=== PATIENT | female | born 1935 | race Caucasian/White ===

== ENCOUNTER 2022-12-31 10:17 | Emergency (ER) | payer MEDICARE, BC, SELFPAY ==
[2022-12-31] VITALS (29 sets, daily range): BP systolic 137–186; BP diastolic 76–98; PULSE 66–92; RESP 12; TEMP 36.6; O2SAT 96–99; BMI 22.5
--- NOTE | 2022-12-31 10:27 | CRLHL7_ITS ---
For Patients: As a result of the Century Cures Act, medical imaging exams and procedure reports are released immediately into your electronic medical record. You may view this report before your referring provider. If you have questions, please contact your health care provider. INDICATION: Acute stroke, left eye vision loss. TECHNIQUE: CTA head with contrast bolus tracking, 3D angiographic rendering using maximum intensity projection (MIP) and images permanently archived. FINDINGS: There is scattered intracranial atherosclerotic disease. There is normal opacification of the intracranial vasculature. There is no large vessel occlusion. No aneurysm is identified. IMPRESSION: No large vessel occlusion. Please note that all CT scans at this facility use dose modulation, iterative reconstruction, and/or weight-based dosing when appropriate to reduce radiation dose to as low as reasonably achievable. Dictated by Iam Song MD @ 12/31/2022 11:39:22 AM (Electronically Signed)
--- NOTE | 2022-12-31 10:27 | CRLHL7_ITS ---
For Patients: As a result of the Century Cures Act, medical imaging exams and procedure reports are released immediately into your electronic medical record. You may view this report before your referring provider. If you have questions, please contact your health care provider. INDICATION: Acute stroke, left eye vision loss. TECHNIQUE: CTA neck with contrast bolus tracking, 3D angiographic rendering using maximum intensity projection (MIP) and images permanently archived. FINDINGS: There is carotid atherosclerosis bilaterally. There is a moderate 60% stenosis of the proximal left ICA by NASCET criteria. There is a mild less than 50% stenosis of the proximal right ICA by NASCET criteria. There is no significant vertebral artery stenosis or dissection. The soft tissues of the neck are within normal limits. The cervical spine is in normal alignment. Degenerative changes are noted in the cervical spine. IMPRESSION: Carotid atherosclerosis bilaterally with moderate left and mild right stenosis by NASCET. Please note that all CT scans at this facility use dose modulation, iterative reconstruction, and/or weight-based dosing when appropriate to reduce radiation dose to as low as reasonably achievable. Dictated by Iam Song MD @ 12/31/2022 11:42:59 AM (Electronically Signed)
--- NOTE | 2022-12-31 10:27 | CRLHL7_ITS ---
For Patients: As a result of the Century Cures Act, medical imaging exams and procedure reports are released immediately into your electronic medical record. You may view this report before your referring provider. If you have questions, please contact your health care provider. Indication: Left eye vision loss Technique: Volumetric multidetector CT images of the head were obtained without the administration of low osmolar intravenous contrast. Comparison: None available Findings: There is no intra-axial or extra-axial fluid collection. There is no mass effect or midline shift. There is age-related cortical atrophy with mild sulcal widening and ex vacuo dilatation of the lateral ventricles. There are chronic small vessel disease changes in the subcortical and periventricular white matter without lost chisholm-white differentiation. The orbits and their contents are grossly within normal limits. The bony calvarium is grossly intact. The paranasal sinuses are clear. The mastoid air cells are well aerated. Impression: 1. Age-related changes of the brain without acute intracranial abnormality. A report was sent to Slim Valentino at 11:05 a.m. December 31, 20[address] all CT scans at this facility use dose modulation, iterative reconstruction, and/or weight-based dosing when appropriate to reduce radiation dose to as low as reasonably achievable. Dictated by Yg Washington MD @ 12/31/2022 11:09:51 AM (Electronically Signed)
--- NOTE | 2022-12-31 10:28 | CRLHL7_ITS ---
For Patients: As a result of the Cures Act, medical imaging exams and procedure reports are released immediately into your electronic medical record. You may view this report before your referring provider. If you have questions, please contact your health care provider. INDICATION: STOKE CODE AMS TECHNIQUE: Chest 1 view COMPARISON: 08/29/2014 FINDINGS: Mild scarring within the right upper lobe. Degenerative changes of both shoulders. Tortuosity of the aorta. Vascular calcifications. No CHF or pleural effusion. No pneumothorax. IMPRESSION: No acute findings. Dictated by Mihai Mccabe MD @ 12/31/2022 12:07:43 PM (Electronically Signed)
--- NOTE | 2022-12-31 10:29 | ED_ITS ---
HPI - General Adult General Time Seen by Provider: 10:22 Chief complaint: Dizziness/Vertigo Stated complaint: Loss of vision L eye Time Seen by Provider: 12/31/22 10:19 Source: patient, family, RN notes reviewed and old records reviewed Mode of arrival: ambulatory Limitations: other (Dementia) History of Present Illness HPI narrative: 87-year-old female who comes in today with vision loss in the left eye. Patient was up around 7:00 a.m. and seemed normal per family. Woke up from a nap about 9:30 a.m. (1 hour prior to coming the emergency department) and should she could not see out of her left eye. Patient has a history of dementia, here has no complaints but on questioning says she still has abnormal vision in the left eye. She can see light and dark but not much else. She denies headache, she does have some dizziness but this is chronic. No numbness or tingling the arms or legs. Daughter who is with her does not think she takes blood thinners. Related Data Home Medications Medication Instructions Recorded Confirmed cholecalciferol (vitamin D3) 1,250 PO 12/31/22 mcg (50,000 unit) capsule levothyroxine 50 mcg tablet 50 mcg PO QAM 12/31/22 12/31/22 lorazepam 0.5 mg tablet mg PO 12/31/22 memantine 10 mg tablet 10 mg PO BID 12/31/22 12/31/22 metoprolol tartrate 100 mg tablet 100 mg PO 12/31/22 nifedipine 60 mg tablet,extended 60 mg PO DAILY 12/31/22 12/31/22 release potassium chloride 10 mEq 10 meq PO BID 12/31/22 12/31/22 tablet,extended release(part/cryst) triamterene 37.5 1 tab PO DAILY 12/31/22 12/31/22 mg-hydrochlorothiazide 25 mg tablet Allergies Allergy/AdvReac Type Severity Reaction Status Date / Time No Known Drug Allergies Allergy Verified 12/31/22 10:55 [facility] Social History Smoking Status: Unknown if ever smoked Exam Narrative: Exam Narrative: General: Well-developed and well-nourished, no acute distress Head: Atraumatic and normocephalic Eyes: Conjunctiva are without injection. Left eye 5 mm and does not react to direct light ENT: External nose and ears are normal, posterior pharynx without erythema or exudate Neck: No midline cervical tenderness, full spontaneous range of motion the neck, trachea midline, no adenopathy Heart: Regular rate and rhythm no murmurs or thrills Lungs: Clear to auscultation bilaterally without wheezes or crackles Abdomen: Soft, nontender, nondistended with active bowel sounds Musculoskeletal: No tenderness, deformity, or edema Neurologic: Awake, alert, and oriented x3, no gross focal neurologic deficits, cranial nerves intact as tested Psych: Mood and affect are appropriate Skin: No rashes Const: Vital Signs, click to edit/add: Vital Signs - 24 hr 12/31/22 10:20 12/31/22 10:55 12/31/22 10:56 Temperature 97.9 F Pulse Rate 71 70 Pulse Rate [Pulse Oximeter] 92 Respiratory Rate Blood Pressure 160/77 H Blood Pressure [Ri ght Upper Arm] 184/98 H Pulse Oximetry 99 96 97 Oxygen Delivery Me thod Room Air 12/31/22 10:57 12/31/22 10:58 12/31/22 11:00 Temperature Pulse Rate 66 72 Pulse Rate [Pulse Oximeter] 81 Respiratory Rate 12 Blood Pressure Blood Pressure [Ri ght Upper Arm] 154/90 H Pulse Oximetry 97 98 97 Oxygen Delivery Me thod Room Air 12/31/22 11:02 12/31/22 11:03 12/31/22 11:15 Temperature Pulse Rate 72 67 68 Pulse Rate [Pulse Oximeter] Respiratory Rate Blood Pressure 149/82 H Blood Pressure [Ri ght Upper Arm] Pulse Oximetry 98 97 97 Oxygen Delivery Me thod 12/31/22 11:17 12/31/22 11:30 12/31/22 11:32 Temperature Pulse Rate 74 71 69 Pulse Rate [Pulse Oximeter] Respiratory Rate Blood Pressure 145/77 H 137/76 Blood Pressure [Ri ght Upper Arm] Pulse Oximetry 96 97 97 Oxygen Delivery Me thod 12/31/22 11:45 12/31/22 11:46 12/31/22 11:47 Temperature Pulse Rate 74 71 74 Pulse Rate [Pulse Oximeter] Respiratory Rate Blood Pressure 143/76 H Blood Pressure [Ri ght Upper Arm] Pulse Oximetry 96 98 98 Oxygen Delivery Me thod 12/31/22 11:51 12/31/22 11:52 12/31/22 12:01 Temperature Pulse Rate 70 71 Pulse Rate [Pulse Oximeter] Respiratory Rate Blood Pressure 158/79 H 176/92 H Blood Pressure [Ri ght Upper Arm] Pulse Oximetry 99 99 Oxygen Delivery Me thod 12/31/22 12:07 12/31/22 12:08 12/31/22 12:09 Temperature Pulse Rate 81 83 78 Pulse Rate [Pulse Oximeter] Respiratory Rate Blood Pressure 186/87 H Blood Pressure [Ri ght Upper Arm] Pulse Oximetry 97 99 99 Oxygen Delivery Me thod 12/31/22 12:12 12/31/22 12:13 12/31/22 12:15 Temperature Pulse Rate 84 82 79 Pulse Rate [Pulse Oximeter] Respiratory Rate Blood Pressure 156/79 H Blood Pressure [Ri ght Upper Arm] Pulse Oximetry 99 98 99 Oxygen Delivery Va thod 12/31/22 12:22 12/31/22 12:23 12/31/22 12:30 Temperature Pulse Rate 78 76 77 Pulse Rate [Pulse Oximeter] Respiratory Rate Blood Pressure 153/81 H Blood Pressure [Ri ght Upper Arm] Pulse Oximetry 98 98 98 Oxygen Delivery Va thod 12/31/22 12:31 Temperature Pulse Rate 79 Pulse Rate [Pulse Oximeter] Respiratory Rate Blood Pressure 161/86 H Blood Pressure [Ri ght Upper Arm] Pulse Oximetry 99 Oxygen Delivery Me thod Course Course Hospital Course: Patient seen and examined immediately on arrival. Prior records reviewed. On exam, patient does have a dilated left pupil with no leg response and says she can only see light and dark. This is consistent with central retinal artery occlusion and so will discuss with Neurology at [place] as a possible stroke equivalent. CTA is ordered. Given onset of symptoms, patient would be a c andidate for TNKase for this if family decides they would like to do so. Reevaluation(s) Time of Reevaluation #1: 10:32 Reevaluation #1: Care discussed with [facility] who agrees with assessment and will discuss TNK with family. Time of Reevaluation #2: 11:09 Reevaluation #2: CT/CTA negative per Radiology. Chest x-ray independently interpreted by me does not demonstrate any acute findings. Time of Reevaluation #3: 11:17 Reevaluation #3: Care discussed with Dr. Frias, family like to move forward with TNKase. Dr. Terrelll talk to grievance and appeals coordinator and plan for transfer to [place] Additional Reevaluation(s): 11:36 AM care discussed with grievance and appeals coordinator at [place]. 12:09 p.m. patient complaining headache and head feeling funny. Head CT is ordered, independently interpreted by me and appears negative for acute intracranial hemorrhage. Radiology interpretation is pending. Blood pressure i s starting to go up a little bit, labetalol is given to maintain blood pressure goal with systolic less than 1 a. Vital Signs Vital signs: Initial Vital Signs Temperature 97.9 F 12/31/22 10:20 Temperature Source Temporal Artery Scan 12/31/22 10:20 Pulse Rate 92 12/31/22 10:20 Blood Pressure 184/98 H 12/31/22 10:20 Blood Pressure Mean 126 H 12/31/22 10:20 Blood Pressure Position Supine 12/31/22 10:20 Pulse Oximetry 99 12/31/22 10:20 Oxygen Delivery Method Room Air 12/31/22 10:20 Vital Signs Temperature 97.9 F 12/31/22 10:20 Pulse Rate 92 12/31/22 10:20 Blood Pressure 184/98 H 12/31/22 10:20 Pulse Oximetry 99 12/31/22 10:20 Oxygen Delivery Method Room Air 12/31/22 10:20 Temperature 97.9 F 12/31/22 10:20 Pulse Rate 79 12/31/22 12:31 Respiratory Rate 12 12/31/22 10:58 Blood Pressure 161/86 H 12/31/22 12:31 Pulse Oximetry 99 12/31/22 12:31 Oxygen Delivery Method Room Air 12/31/22 10:58 Medical Decision Making Lab Data Labs: Lab Results 12/31/22 Range/Units 10:30 WBC 10.14 (4.50-11.00) K/uL RBC 5.53 H (4.00-5.20) m/uL Hgb 16.8 H (12.0-16.0) gm/dL Hct 50.8 (33.0-51.0) % MCV 92 (80-100) fL MCH 30 (26-34) pg MCHC 33 (32-36) gm/dL RDW Coeff of Efrain 13.1 (11.5-15.5) % Plt Count 314 (140-440) K/uL Neut % (Auto) 81.5 H (42.0-72.0) % Lymph % (Auto) 10.1 L (20-44) % Dickson % (Auto) 7.3 (0.0-11.0) % Eos % (Auto) 0.5 (0.0-7.0) % Baso % (Auto) 0.1 (0.0-3.0) % Neut # (Auto) 8.30 H (1.7-7.0) K/uL Lymph # (Auto) 1.00 (0.90-2.90) K/uL Dickson # (Auto) 0.70 (0.00-0.90) K/UL Eos # (Auto) 0.05 (0.00-0.50) K/uL Baso # (Auto) 0.01 (0.00-0.30) K/uL INR 0.98 (0.91-1.10) Sodium 139 (135-149) mmol/L Potassium 3.9 (3.6-5.1) mmol/L Chloride 101 (96-114) mmol/L Carbon Dioxide 29 (20-32) mmol/L BUN 18 (7-30) mg/dL Creatinine 1.2 (0.5-1.5) mg/dL Estimated Creat Clear 30.84 Estimated GFR 44 ml/min Glucose 124 H (60-115) mg/dL Calcium 9.5 (8.4-10.6) mg/dL Magnesium 1.7 (1.5-2.6) mg/dL ECG Data Attestation: I personally reviewed and interpreted this ECG as follows: Prior ECG tracings: not available for review Interpretation: Performed at 10:50 AM, sinus rhythm rate 69, normal intervals, normal axis, AL 156, QTc 445 Critical Care Time Critical Care Time Critical Care Time: Yes (Central retinal artery occlusion/stroke, lytics given) Attestation: The patient required my highest level preparedness to intervene emergently and I personally spent this critical care time directly and personally managing the patient. This critical care time included: Obtaining a history; Examining the patient; Pulse oximetry; Ordering and reviewing of studies; Arranging urgent treatment with development of a management plan; Evaluation of patients response to treatment; Frequent reassessment discussions with other providers. This critical care time was performed to assess and manage the high probability of imminent life-threatening deterioration that could result in multiorgan failure. It was exclusive of separate billable procedures and treating other patients and teaching time. Total Critical Care Time in Minutes: 80 Discharge Plan Discharge Clinical Impression: CRAO (central retinal artery occlusion), Hypertension Patient Disposition: [facility]na Garza Condition: Stable Prescriptions: No Action metoprolol tartrate 100 mg tablet 100 mg PO lorazepam 0.5 mg tablet PO levothyroxine 50 mcg tablet 50 mcg PO QAM triamterene-hydrochlorothiazid 37.5-25 mg tablet 1 tab PO DAILY nifedipine 60 mg tablet extended release 60 mg PO DAILY potassium chloride 10 mEq tablet,ER particles/crystals 10 meq PO BID memantine 10 mg tablet 10 mg PO BID cholecalciferol (vitamin D3) 1,250 mcg (50,000 unit) capsule PO Stand Alone Forms: [employer] Info Instructions
[2022-12-31 10:43] LABS: Basophils Absolute Auto 0.01 K/uL (0.00-0.30); Basophils Percent Auto 0.1 % (0.0-3.0); Eosinophils Absolute Auto 0.05 K/uL (0.00-0.50); Eosinophils Percent Auto 0.5 % (0.0-7.0); Hematocrit 50.8 % (33.0-51.0); Hemoglobin* 16.8 gm/dL (12.0-16.0); Immature Granulocytes Abs Auto 0.05 K/uL (0.00-0.30); Immature Granulocytes Pct Auto 0.5 %; Lymphocytes Percent Auto 10.1 % (20-44); Mean Corpuscular HGB Conc 33 gm/dL (32-36); Mean Corpuscular Hemoglobin 30 pg (26-34); Mean Corpuscular Volume 92 fL (80-100); Monocytes Percent Auto 7.3 % (0.0-11.0); Neutrophils Percent Auto 81.5 % (42.0-72.0); Platelet Count* 314 K/uL (140-440); RDW Coefficient of Variation % 13.1 % (11.5-15.5); Red Blood Count 5.53 m/uL (4.00-5.20); White Blood Count* 10.14 K/uL (4.50-11.00)
[2022-12-31 10:54] LABS: Slide Review Reflex No
[2022-12-31 11:02] LABS: INR 0.98 (0.91-1.10); Prothrombin Time 13.6 Seconds
[2022-12-31 11:07] LABS: Chloride* 101 mmol/L (96-114); Sodium* 139 mmol/L (135-149)
[2022-12-31 11:08] LABS: Potassium* 3.9 mmol/L (3.6-5.1)
[2022-12-31 11:10] LABS: Creatinine* 1.2 mg/dL (0.5-1.5); Est. Creatinine Clearance* 30.84; Estimated Glomerular Filt Rate 44 ml/min
[2022-12-31 11:11] LABS: Blood Urea Nitrogen* 18 mg/dL (7-30); Calcium* 9.5 mg/dL (8.4-10.6); Carbon Dioxide* 29 mmol/L (20-32); Glucose* 124 mg/dL (60-115); Magnesium* 1.7 mg/dL (1.5-2.6)
[2022-12-31] MEDS: TENECTEPLASE 5 MG/ML inj 15 MG IVP (11:41)
[2022-12-31] MEDS: SODIUM CHLORIDE 0.9 % (FLUSH) 10 ML SYRINGE IVF (11:42)
--- NOTE | 2022-12-31 11:56 | CRLHL7_ITS ---
For Patients: As a result of the Century Cures Act, medical imaging exams and procedure reports are released immediately into your electronic medical record. You may view this report before your referring provider. If you have questions, please contact your health care provider. INDICATION: Headache during tenecteplase COMPARISON: 12/31/2022 TECHNIQUE: A CT volumetric acquisition was performed of the brain without IV contrast. Please note that all CT scans at this facility use dose modulation, iterative reconstruction, and/or weight-based dosing when appropriate to reduce radiation dose to as low as reasonably achievable. FINDINGS: Residual contrast enhancement of the tentorium, vessels and falx noted. No hemorrhage. No hydrocephalus. No midline shift. Low attenuation changes within the subcortical white matter involving the left frontal parietal lobe again noted. Other areas of decreased attenuation present within the subcortical white matter and periventricular white matter bilaterally. IMPRESSION: Residual contrast present. No intracranial hemorrhage. Extensive chronic appearing white matter changes. No hydrocephalus. Please note that all CT scans at this facility use dose modulation, iterative reconstruction, and/or weight-based dosing when appropriate to reduce radiation dose to as low as reasonably achievable. Dictated by Mihai Mccabe MD @ 12/31/2022 12:57:19 PM (Electronically Signed)
--- NOTE | 2022-12-31 11:58 | ED.NURSE ---
Pt c/o not feeling right in her head and c/o new headache. Pt having trouble describing her symptoms specifically. updated, STAT head CT ordered.
--- NOTE | 2022-12-31 12:12 | ED.NURSE ---
Report called to Adina at [facility].
--- NOTE | 2022-12-31 12:16 | ED.NURSE ---
in room to examine pt. Pt states headache has resolved now. Pt is less hypertensive now as well.
== END 2022-12-31 12:49 | disposition short-term general hospital (02) ==
LOC: ED 11:32
PROVIDERS: Emergency Provider Family Medicine
DX: H34.12 Central retinal artery occlusion, left eye (principal); I10 Essential (primary) hypertension
CPT/HCPCS: 36415; 70450; 70496; 70498; 71045; 80048; 83735; 85025; 85610; 93005; 96374; 96375; 99285; 99291; 99292; J3101; Q9967

== ENCOUNTER 2022-12-31 12:40 | Outpatient (CLI) | payer MEDICARE, BC, SELFPAY | END 2022-12-31 12:41 | disposition home or self-care (01) | LOC: AMB 01-01 11:04 | PROVIDERS: Visit Provider Family Medicine | DX: I63.89 Other cerebral infarction (principal) | CPT/HCPCS: A0425; A0426; A0428 ==

== ENCOUNTER 2023-09-02 14:19 | Inpatient (IN) | payer MEDICARE, BC, SELFPAY ==
[2023-09-02] VITALS (39 sets, daily range): BP systolic 73–125; BP diastolic 48–67; PULSE 57–92; RESP 16–18; TEMP 36.4–36.9; O2SAT 91–99; BMI 26.6; BMI 24.6
--- NOTE | 2023-09-02 14:39 | ED_ITS ---
HPI - General Adult General Chief complaint: Weakness Stated complaint: Lethargy, weak Time Seen by Provider: 09/02/23 14:30 History of Present Illness HPI narrative: This 88-year-old female comes in reporting some lightheadedness symptoms for the past 4 5 days. She is a poor historian with dementia. She does not report any pain. She arrives here with blood pressure at 73/52. Her other vital signs are in normal range. Family member state that she had significant weakness today u johnnie awakening this morning. She has had bowel and bladder incontinence which is not normal for her. The patient has a interpersonal communications professor that comes daily for 6 hours. This person has not been able to come the last couple days. The patient is alone at home overnight. Related Data Home Medications Medication Instructions Recorded Confirmed cholecalciferol (vitamin D3) 1,250 50,000 unit PO Q14D 12/31/22 09/02/23 mcg (50,000 unit) capsule levothyroxine 50 mcg tablet 50 mcg PO QAM 12/31/22 09/02/23 memantine 10 mg tablet 10 mg PO BID 12/31/22 09/02/23 aspirin 81 mg chewable tablet 81 mg PO DAILY 09/02/23 09/02/23 (Vilma Chewable Low Dose Aspirin) atorvastatin 20 mg tablet 20 mg PO HS 09/02/23 09/02/23 cyanocobalamin (vitamin B-12) 1,000 mcg PO Q48H 09/02/23 09/02/23 1,000 mcg tablet furosemide 20 mg tablet 20 mg PO QAM 09/02/23 09/02/23 metoprolol tartrate 25 mg tablet 12.5 mg PO BID 09/02/23 09/02/23 pantoprazole 40 mg tablet,delayed 40 mg PO DAILY 09/02/23 09/02/23 release valsartan 80 mg tablet 80 mg PO DAILY 09/02/23 09/02/23 Allergies Allergy/AdvReac Type Severity Reaction Status Date / Time lisinopril Allergy Unknown Verified 09/02/23 14:30 Review of Systems Status of ROS: Reports: unobtainable due to mental status [facility] Medical History (Updated 09/02/23 @ 19:22 by Jaren Mcclain MD) Hyperlipidemia ?E78.5 - Hyperlipidemia, unspecified (ICD-10) GERD (gastroesophageal reflux disease) ?K21.9 - Gastro-esophageal reflux disease without esophagitis (ICD-10) Anxiety ?F41.9 - Anxiety disorder, unspecified (ICD-10) Alzheimer's dementia with behavioral disturbance ?G30.9 - Alzheimer's disease, unspecified (ICD-10) ?F02.818 - Dementia in other diseases classified elsewhere, unspecified severity, with other behavioral disturbance (ICD-10) Surgical History (Updated 02/18/23 @ 08:37 by Anna Rodriguez RN) Hx of left inguinal hernia repair ?Z98.890 - Other specified postprocedural states (ICD-10) ?Z87.19 - Personal history of other diseases of the digestive system (ICD-10) Hx of vaginal hysterectomy ?Z90.710 - Acquired absence of both cervix and uterus (ICD-10) Social History Smoking Status: Unknown if ever smoked Exam Narrative: Exam Narrative: HEENT: Normocephalic, atraumatic. Neck: Normal range of motion. Nontender. Supple. Heart: Regular. No murmurs. Normal rate. Intact distal pulses. Lungs: Clear to auscultation. No chest discomfort. No wheezes, rhonchi, or rales. Abdomen: Normal bowel sounds. Nontender. No rebound tenderness. Genitalia: Deferred. Back: No midline tenderness. Normal range of motion. Extremities: Normal range of motion. No injury. Skin: Intact. No rash. Warm. No erythema or pallor. Neurologic: No altered sensation. Nursing notes and vitals signs are reviewed. Const: Vital Signs, click to edit/add: Vital Signs - 24 hr 09/02/23 14:21 09/02/23 15:07 09/02/23 15:15 Temperature 98 F Pulse Rate 71 69 Pulse Rate [Pulse Oximeter] 92 Respiratory Rate 16 Blood Pressure Blood Pressure [Ri ght Upper Arm] 73/52 L Pulse Oximetry 96 93 95 Oxygen Delivery Me thod Room Air 09/02/23 15:17 09/02/23 15:18 09/02/23 15:30 Temperature Pulse Rate 69 68 66 Pulse Rate [Pulse Oximeter] Respiratory Rate Blood Pressure 99/50 L Blood Pressure [Ri ght Upper Arm] Pulse Oximetry 94 94 94 Oxygen Delivery Me thod 09/02/23 15:32 09/02/23 15:32 09/02/23 15:45 Temperature Pulse Rate 67 67 79 Pulse Rate [Pulse Oximeter] Respiratory Rate Blood Pressure 102/48 L 102/48 L Blood Pressure [Ri ght Upper Arm] Pulse Oximetry 96 96 99 Oxygen Delivery Me thod 09/02/23 15:47 09/02/23 15:48 09/02/23 16:00 Temperature Pulse Rate 69 69 69 Pulse Rate [Pulse Oximeter] Respiratory Rate Blood Pressure 104/51 L Blood Pressure [Ri ght Upper Arm] Pulse Oximetry 95 98 96 Oxygen Delivery Me thod 09/02/23 16:02 09/02/23 16:15 09/02/23 16:17 Temperature Pulse Rate 71 71 70 Pulse Rate [Pulse Oximeter] Respiratory Rate Blood Pressure 107/56 L 110/52 L Blood Pressure [Ri ght Upper Arm] Pulse Oximetry 94 93 95 Oxygen Delivery Me thod 09/02/23 16:18 09/02/23 16:30 09/02/23 16:32 Temperature Pulse Rate 69 69 Pulse Rate [Pulse Oximeter] Respiratory Rate Blood Pressure 121/54 L Blood Pressure [Ri ght Upper Arm] Pulse Oximetry 94 96 Oxygen Delivery Me thod 09/02/23 16:45 09/02/23 16:47 09/02/23 17:00 Temperature Pulse Rate 69 68 74 Pulse Rate [Pulse Oximeter] Respiratory Rate Blood Pressure 115/55 L Blood Pressure [Ri ght Upper Arm] Pulse Oximetry 94 95 95 Oxygen Delivery Me thod 09/02/23 17:02 09/02/23 17:32 09/02/23 17:33 Temperature Pulse Rate 75 67 66 Pulse Rate [Pulse Oximeter] Respiratory Rate Blood Pressure 125/57 L 111/61 Blood Pressure [Ri ght Upper Arm] Pulse Oximetry 98 95 94 Oxygen Delivery Me thod 09/02/23 17:45 09/02/23 18:00 09/02/23 18:02 Temperature Pulse Rate 64 65 66 Pulse Rate [Pulse Oximeter] Respiratory Rate Blood Pressure 112/60 Blood Pressure [Ri ght Upper Arm] Pulse Oximetry 94 96 97 Oxygen Delivery Me thod 09/02/23 18:15 09/02/23 18:30 09/02/23 18:33 Temperature Pulse Rate 68 69 Pulse Rate [Pulse Oximeter] Respiratory Rate Blood Pressure 101/63 Blood Pressure [Ri ght Upper Arm] Pulse Oximetry 96 95 Oxygen Delivery Me thod 09/02/23 18:45 Temperature Pulse Rate 72 Pulse Rate [Pulse Oximeter] Respiratory Rate Blood Pressure Blood Pressure [Ri ght Upper Arm] Pulse Oximetry 95 Oxygen Delivery Me thod Course Vital Signs Vital signs: Initial Vital Signs Temperature 98 F 09/02/23 14:21 Temperature Source Temporal Artery Scan 09/02/23 14:21 Pulse Rate 92 09/02/23 14:21 Pulse Rhythm Regular 09/02/23 14:21 Pulse Strength 3+ Normal 09/02/23 14:21 Respiratory Rate 16 09/02/23 14:21 Blood Pressure 73/52 L 09/02/23 14:21 Blood Pressure Mean 59 L 09/02/23 14:21 Blood Pressure Position Sitting 09/02/23 14:21 Pulse Oximetry 96 09/02/23 14:21 Oxygen Delivery Method Room Air 09/02/23 14:21 Vital Signs Temperature 98 F 09/02/23 14:21 Pulse Rate 92 09/02/23 14:21 Respiratory Rate 16 09/02/23 14:21 Blood Pressure 73/52 L 09/02/23 14:21 Pulse Oximetry 96 09/02/23 14:21 Oxygen Delivery Method Room Air 09/02/23 14:21 Temperature 98 F 09/02/23 14:21 Pulse Rate 72 09/02/23 18:45 Respiratory Rate 16 09/02/23 14:21 Blood Pressure 101/63 09/02/23 18:33 Pulse Oximetry 95 09/02/23 18:45 Oxygen Delivery Method Room Air 09/02/23 14:21 Medications Administered Medications: Generic Name Dose Route Start Last Admin Trade Name Freq PRN Reason Stop Dose Admin Piperacillin Sod/Tazobactam 100 mls @ 200 mls/hr 09/02/23 18:21 09/02/23 18:40 Sod 3.375 gm/ Sodium Chloride IVPB 09/02/23 18:22 200 mls/hr ONCE ONE Administration Discontinued Medications Generic Name Dose Route Start Last Admin Trade Name Freq PRN Reason Stop Dose Admin Sodium Chloride 1,000 mls @ 1,000 mls/hr 09/02/23 14:45 09/02/23 16:01 0.9 % Sodium Chloride 1000 Ml IV 09/02/23 15:44 Infused .Q1H [facility] Infusion Sodium Chloride 500 mls @ 500 mls/hr 09/02/23 16:33 09/02/23 17:47 0.9 % Sodium Chloride 500 Ml IV 09/02/23 17:32 Infused .Q1H ONE Infusion Medical Decision Making MDM Narrative Medical decision making narrative: This patient arrives with decreased function and has low blood pressure at 73/52. An IV was established and she received a L of normal saline which brought her blood pressure up to a sufficient level. Later she did receive an additional 500 mL of normal saline. Labs are acquired and her initial lactate level returns at 2.9. A repeat check of her lactate normalizes at 1.5. Her white count returns significant elevated near 18,000. She does not have any fever. She has not had any cough. She was incontinent of stool and possibly urine. A catheterized urine samples obtained and this returns negative for infection. Her initial troponin returned elevated at 0.42 and a repeat troponin returns at 0.38. I did speak with the patient's family members regarding these findings. I offered referral to apprentice cook which would include a transfer. They declined such intervention. It could be that this was some demand ischemia. The patient has not talked much but states that she has not had any pain. She clearly has a decreased in function compared to her normal [place] and has 6 hours of daily care from a home nurse visit. A chest x-ray is obtained also in by my review does not show any sign of obvious infiltrate. Blood cultures are obtained and the patient did receive an IV dose of Zosyn. Her repeat lactate is reassuring and she is not showing triggers to do a workup for sepsis in the 1st place but nevertheless a lactate level repeated is reassuring. I did speak with the hospitalist conveyor mechanic, Khloe Hall, who will arrange for her admission. Lab Data Labs: Lab Results 09/02/23 09/02/23 09/02/23 Range/Units 14:37 14:38 14:55 WBC 17.94 H (4.50-11.00) K/uL RBC 4.51 (4.00-5.20) m/uL Hgb 13.1 (12.0-16.0) gm/dL Hct 40.6 (33.0-51.0) % MCV 90 (80-100) fL MCH 29 (26-34) pg MCHC 32 (32-36) gm/dL RDW Coeff of [place] 14.9 (11.5-15.5) % Plt Count 210 (140-440) K/uL Neut % (Auto) 94.7 H (42.0-72.0) % Lymph % (Auto) 1.7 L (20-44) % [place] % (Auto) 3.1 (0.0-11.0) % Eos % (Auto) 0.0 (0.0-7.0) % Baso % (Auto) 0.1 (0.0-3.0) % Neut # (Auto) 17.00 H (1.7-7.0) K/uL Lymph # (Auto) 0.30 L (0.90-2.90) K/uL [place] # (Auto) 0.60 (0.00-0.90) K/UL Eos # (Auto) 0.00 (0.00-0.50) K/uL Baso # (Auto) 0.00 (0.00-0.30) K/uL Abs Immat Gran (auto) 0.10 (0.00-0.30) K/uL Imm/Tot Granulo (auto) 0.4 % Sodium 138 (135-149) mmol/L Potassium 3.1 L (3.6-5.1) mmol/L Chloride 103 (96-114) mmol/L Carbon Dioxide 25 (20-32) mmol/L Anion Gap 10 (7-15) mEq/L BUN 23 (7-30) mg/dL Creatinine 1.5 (0.5-1.5) mg/dL Estimated Creat Clear 24.23 Estimated GFR 34 ml/min Glucose 108 (60-115) mg/dL Lactate 2.9 H (0.5-1.9) mmol/L Calcium 9.2 (8.4-10.6) mg/dL Urine Color (Yellow) Urine Appearance (Clear) Urine pH (5.0-8.5) Ur Specific [place] (1.000-1.030) Urine Protein (Negative) Urine Glucose (UA) (Negative) Urine Ketones (Negative) Urine Blood (Negative) Urine Nitrite (Negative) Urine Bilirubin (Negative) Urine Urobilinogen (0.2-1.0) Ur Leukocyte Esterase (Negative) Urine RBC (0-2) Urine WBC (0-5) Ur Squamous Epith Cells (None-Few) Urine Bacteria (None) SARS-CoV-2 (PCR) Negative SARS-CoV-2 (Negative) Influenza Type A (PCR) Negative PCR FLU A (Negative) Influenza Type B (PCR) Negative PCR FLU B (Negative) RSV (PCR) Negative PCR RSV (Negative) POC Troponin I 0.42 H (0.01-0.04) ng/ml 09/02/23 09/02/23 09/02/23 Range/Units 15:40 16:34 16:40 WBC (4.50-11.00) K/uL RBC (4.00-5.20) m/uL Hgb (12.0-16.0) gm/dL Hct (33.0-51.0) % MCV (80-100) fL MCH (26-34) pg MCHC (32-36) gm/dL RDW Coeff of Efrain (11.5-15.5) % Plt Count (140-440) K/uL Neut % (Auto) (42.0-72.0) % Lymph % (Auto) (20-44) % [place] % (Auto) (0.0-11.0) % Eos % (Auto) (0.0-7.0) % Baso % (Auto) (0.0-3.0) % Neut # (Auto) (1.7-7.0) K/uL Lymph # (Auto) (0.90-2.90) K/uL [place] # (Auto) (0.00-0.90) K/UL Eos # (Auto) (0.00-0.50) K/uL Baso # (Auto) (0.00-0.30) K/uL Abs Immat Gran (auto) (0.00-0.30) K/uL Imm/Tot Granulo (auto) % Sodium (135-149) mmol/L Potassium (3.6-5.1) mmol/L Chloride (96-114) mmol/L Carbon Dioxide (20-32) mmol/L Anion Gap (7-15) mEq/L BUN (7-30) mg/dL Creatinine (0.5-1.5) mg/dL Estimated Creat Clear Estimated GFR ml/min Glucose (60-115) mg/dL Lactate 1.5 (0.5-1.9) mmol/L Calcium (8.4-10.6) mg/dL Urine Color Yellow (Yellow) Urine Appearance Clear (Clear) Urine pH 6.0 (5.0-8.5) Ur Specific [place] 1.020 (1.000-1.030) Urine Protein Negative (Negative) Urine Glucose (UA) Negative (Negative) Urine Ketones Negative (Negative) Urine Blood Negative (Negative) Urine Nitrite Negative (Negative) Urine Bilirubin Negative (Negative) Urine Urobilinogen 0.2 (0.2-1.0) Ur Leukocyte Esterase Negative (Negative) Urine RBC 0-2 (0-2) Urine WBC 2-5 (0-5) Ur Squamous Epith Cells Few (None-Few) Urine Bacteria None (None) SARS-CoV-2 (PCR) (Negative) Influenza Type A (PCR) (Negative) Influenza Type B (PCR) (Negative) RSV (PCR) (Negative) POC Troponin I 0.38 H (0.01-0.04) ng/ml ECG Data Attestation: I personally reviewed and interpreted this ECG as follows: Interpretation: Normal sinus rhythm. Rate is 72 beats per minute. There are no ST or T-wave abnormalities. Repeat EKG shows normal sinus rhythm with a rate of 65 beats per minute. There are no specific ST or T-wave abnormalities. Discharge Plan Discharge Clinical Impression: Leukocytosis, Weakness Patient Disposition: Admitted As Inpatient Condition: Unchanged Prescriptions: No Action atorvastatin 20 mg tablet 20 mg PO HS metoprolol tartrate 25 mg tablet 12.5 mg PO BID valsartan 80 mg tablet 80 mg PO DAILY pantoprazole 40 mg tablet,delayed release (DR/EC) 40 mg PO DAILY cyanocobalamin (vitamin B-12) 1,000 mcg tablet 1,000 mcg PO Q48H Rx Instructions: EVERY OTHER DAY furosemide 20 mg tablet 20 mg PO QAM aspirin [Vilma Chewable Aspirin] 81 mg tablet,chewable 81 mg PO DAILY levothyroxine 50 mcg tablet 50 mcg PO QAM memantine 10 mg tablet 10 mg PO BID cholecalciferol (vitamin D3) 1,250 mcg (50,000 unit) capsule 50,000 unit PO Q14D Rx Instructions: EVERY OTHER WEEK Follow Up/Referrals: Provider,Not a Local [Primary Care Provider] -
[2023-09-02] MEDS: 0.9 % SODIUM CHLORIDE 1000 ml 1,000 ML IV (15:00)
[2023-09-02 15:06] LABS: Lactate* 2.9 mmol/L (0.5-1.9)
[2023-09-02 15:12] LABS: Basophils Percent Auto 0.1 % (0.0-3.0); Hematocrit 40.6 % (33.0-51.0); Hemoglobin* 13.1 gm/dL (12.0-16.0); Immature Granulocytes Pct Auto 0.4 %; Lymphocytes Percent Auto 1.7 % (20-44); Mean Corpuscular HGB Conc 32 gm/dL (32-36); Mean Corpuscular Hemoglobin 29 pg (26-34); Mean Corpuscular Volume 90 fL (80-100); Monocytes Percent Auto 3.1 % (0.0-11.0); Neutrophils Percent Auto 94.7 % (42.0-72.0); Platelet Count* 210 K/uL (140-440); RDW Coefficient of Variation % 14.9 % (11.5-15.5); Red Blood Count 4.51 m/uL (4.00-5.20); White Blood Count* 17.94 K/uL (4.50-11.00)
[2023-09-02 15:15] LABS: Troponin, Point-of-Care* 0.42 ng/ml (0.01-0.04)
[2023-09-02 15:16] LABS: Slide Review Reflex No
[2023-09-02 15:29] LABS: Chloride* 103 mmol/L (96-114); Potassium* 3.1 mmol/L (3.6-5.1); Sodium* 138 mmol/L (135-149)
[2023-09-02 15:32] LABS: Anion Gap 10 mEq/L (7-15); Blood Urea Nitrogen* 23 mg/dL (7-30); Carbon Dioxide* 25 mmol/L (20-32); Creatinine* 1.5 mg/dL (0.5-1.5); Est. Creatinine Clearance* 24.23; Estimated Glomerular Filt Rate 34 ml/min; Glucose* 108 mg/dL (60-115)
[2023-09-02 15:33] LABS: Calcium* 9.2 mg/dL (8.4-10.6)
[2023-09-02 15:35] LABS: PCR FLU A Negative PCR FLU A (Negative); PCR FLU B Negative PCR FLU B (Negative); PCR RSV Negative PCR RSV (Negative); SARS PCR* Negative SARS-CoV-2 (Negative)
--- NOTE | 2023-09-02 15:48 | ED.NURSE ---
16Fr Wiggins placed under sterile fashion. 10cc sterile water in balloon. Pt tolerated procedure well. Successful placement on first attempt. Catheter draining clear, light nayla urine.
[2023-09-02 15:56] LABS: Appearance Urine Clear (Clear); Bilirubin Urine Negative (Negative); Blood Urine Negative (Negative); Color Urine Yellow (Yellow); Glucose Urine Negative (Negative); Ketones Urine Negative (Negative); Leukocyte Esterase Urine Negative (Negative); Nitrite Urine Negative (Negative); Protein Urine Negative (Negative); Urobilinogen Urine 0.2 (0.2-1.0)
[2023-09-02 16:30] LABS: RBC Urine 0-2 (0-2); Squamous Epithelial Cell Urine Few (None-Few)
[2023-09-02] MEDS: 0.9 % SODIUM CHLORIDE 500 ML 500 ML IV (16:48)
[2023-09-02 16:49] LABS: Lactate* 1.5 mmol/L (0.5-1.9)
[2023-09-02 16:56] LABS: Troponin, Point-of-Care* 0.38 ng/ml (0.01-0.04)
--- NOTE | 2023-09-02 18:10 | XR_ITS ---
Final Report Patient: KIRT HUFFMAN Facility:?[facility] Patient ID:?[id number] Site Patient ID:?[id number]. Site :?[id number] Study:?XRay Chest PORTABLE-09/02/2023 6:26:16 PM Ordering Physician:GILBERT Final Report: INDICATION: ELEVATED WBC COUNT TECHNIQUE: Chest 1 view COMPARISON: 12/31/2022 FINDINGS: Similar appearance of the perihilar vascularity. Aortic tortuosity. Increased retrocardiac density. No pneumothorax. IMPRESSION: Suspicion of a left lower lobe infiltrate behind the heart. Dictated by Mihai Mccabe MD @ 09/03/2023 1:17:59 PM (Electronic Signature)
[2023-09-02] MEDS: PIPERACILLIN/TAZOBACTAM 3.375 GM in 0.9 % SODIUM CHLORIDE Mini-bag 100 ML IVPB (18:40)
--- NOTE | 2023-09-02 20:06 | P.IMHP_ITS ---
Hospitalist- H&P: HPI History of Present Illness Date Seen: 09/02/23 Chief complaint: Lethargy, weak Narrative: Chloé Wellington is a 88 year old female past medical history significant for hypertension, CRAO, hypercholesterolemia, hypothyroidism, GERD, uterine cancer, Alzheimer's disease is admitted to the medical floor from the ED for further management hypotension and leukocytosis, suspected community-acquired pneumonia. As patient is a poor historian and family is no longer present, majority of history is obtained by ED provider. In the ED, patient complained of lightheadedness for the past 4-5 days. She is able to tell me that she is not in any pain. She denies headache. Denies chest pain. No reported fevers. Family had told ED provider that patient was significantly weak this morning. She has also had bowel and bladder incontinence with loose stools at home which is not her normal. Patient lives alone and has a certified personal chef that is with her for 6 hours a day but has not been able to be there for the last couple of days. She is otherwise alone at night. Review of Systems Narrative: REVIEW OF SYSTEMS: Complete review of systems performed and negative unless otherwise stated in HPI or below. [facility] Medical History (Updated 09/02/23 @ 20:29 by Khloe Perkins PA-C) Hypothyroidism ?E03.9 - Hypothyroidism, unspecified (ICD-10) Hypertension ?I10 - Essential (primary) hypertension (ICD-10) CRAO (central retinal artery occlusion) ?H34.10 - Central retinal artery occlusion, unspecified eye (ICD-10) Hyperlipidemia ?E78.5 - Hyperlipidemia, unspecified (ICD-10) GERD (gastroesophageal reflux disease) ?K21.9 - Gastro-esophageal reflux disease without esophagitis (ICD-10) Anxiety ?F41.9 - Anxiety disorder, unspecified (ICD-10) Alzheimer's dementia with behavioral disturbance ?G30.9 - Alzheimer's disease, unspecified (ICD-10) ?F02.818 - Dementia in other diseases classified elsewhere, unspecified severity, with other behavioral disturbance (ICD-10) Surgical History Hx of left inguinal hernia repair ?Z98.890 - Other specified postprocedural states (ICD-10) ?Z87.19 - Personal history of other diseases of the digestive system (ICD-10) Hx of vaginal hysterectomy ?Z90.710 - Acquired absence of both cervix and uterus (ICD-10) Social History Smoking Status: Unknown if ever smoked Meds Home Medications and Allergies Home Medications Medication Instructions Recorded Confirmed Type cholecalciferol (vitamin D3) 1,250 50,000 unit PO Q14D 12/31/22 09/02/23 History mcg (50,000 unit) capsule levothyroxine 50 mcg tablet 50 mcg PO QAM 12/31/22 09/02/23 History memantine 10 mg tablet 10 mg PO BID 12/31/22 09/02/23 History aspirin 81 mg chewable tablet 81 mg PO DAILY 09/02/23 09/02/23 History (Vilma Chewable Low Dose Aspirin) atorvastatin 20 mg tablet 20 mg PO HS 09/02/23 09/02/23 History cyanocobalamin (vitamin B-12) 1,000 mcg PO Q48H 09/02/23 09/02/23 History 1,000 mcg tablet furosemide 20 mg tablet 20 mg PO QAM 09/02/23 09/02/23 History metoprolol tartrate 25 mg tablet 12.5 mg PO BID 09/02/23 09/02/23 History pantoprazole 40 mg tablet,delayed 40 mg PO DAILY 09/02/23 09/02/23 History release valsartan 80 mg tablet 80 mg PO DAILY 09/02/23 09/02/23 History Allergies Allergy/AdvReac Type Severity Reaction Status Date / Time lisinopril Allergy Unknown Verified 09/02/23 14:30 Exam Narrative: Exam Narrative: PHYSICAL EXAM General: Pleasant, appears in NAD HEENT: Normocephalic, atraumatic, sclera white, EOMI, oral mucosa dry Cardiovascular: RRR. No pitting edema Pulmonary: CTA bilaterally without rhonchi, rales, expiratory wheezes. No dyspnea on room air Abdominal: Soft, nondistended, NTTP, no guarding Neurological: Alert, poor historian, no focal findings Extremities: No gross joint deformity or swelling. AROMI. Neurovascularly intact Skin: Warm, dry. Const: Vital Signs, click to edit/add: Vital Signs - 24 hr 09/02/23 14:21 09/02/23 15:07 09/02/23 15:15 Temperature 98 F Pulse Rate 71 69 Pulse Rate [Pulse Oximeter] 92 Respiratory Rate 16 Blood Pressure Blood Pressure [Ri ght Upper Arm] 73/52 L Pulse Oximetry 96 93 95 Oxygen Delivery Me thod Room Air 09/02/23 15:17 09/02/23 15:18 09/02/23 15:30 Temperature Pulse Rate 69 68 66 Pulse Rate [Pulse Oximeter] Respiratory Rate Blood Pressure 99/50 L Blood Pressure [Ri ght Upper Arm] Pulse Oximetry 94 94 94 Oxygen Delivery Me thod 09/02/23 15:32 09/02/23 15:32 09/02/23 15:45 Temperature Pulse Rate 67 67 79 Pulse Rate [Pulse Oximeter] Respiratory Rate Blood Pressure 102/48 L 102/48 L Blood Pressure [Ri ght Upper Arm] Pulse Oximetry 96 96 99 Oxygen Delivery Me thod 09/02/23 15:47 09/02/23 15:48 09/02/23 16:00 Temperature Pulse Rate 69 69 69 Pulse Rate [Pulse Oximeter] Respiratory Rate Blood Pressure 104/51 L Blood Pressure [Ri ght Upper Arm] Pulse Oximetry 95 98 96 Oxygen Delivery Me thod 09/02/23 16:02 09/02/23 16:15 09/02/23 16:17 Temperature Pulse Rate 71 71 70 Pulse Rate [Pulse Oximeter] Respiratory Rate Blood Pressure 107/56 L 110/52 L Blood Pressure [Ri ght Upper Arm] Pulse Oximetry 94 93 95 Oxygen Delivery Me thod 09/02/23 16:18 09/02/23 16:30 09/02/23 16:32 Temperature Pulse Rate 69 69 Pulse Rate [Pulse Oximeter] Respiratory Rate Blood Pressure 121/54 L Blood Pressure [Ri ght Upper Arm] Pulse Oximetry 94 96 Oxygen Delivery Me thod 09/02/23 16:45 09/02/23 16:47 09/02/23 17:00 Temperature Pulse Rate 69 68 74 Pulse Rate [Pulse Oximeter] Respiratory Rate Blood Pressure 115/55 L Blood Pressure [Ri ght Upper Arm] Pulse Oximetry 94 95 95 Oxygen Delivery Me thod 09/02/23 17:02 09/02/23 17:32 09/02/23 17:33 Temperature Pulse Rate 75 67 66 Pulse Rate [Pulse Oximeter] Respiratory Rate Blood Pressure 125/57 L 111/61 Blood Pressure [Ri ght Upper Arm] Pulse Oximetry 98 95 94 Oxygen Delivery Nc thod 09/02/23 17:45 09/02/23 18:00 09/02/23 18:02 Temperature Pulse Rate 64 65 66 Pulse Rate [Pulse Oximeter] Respiratory Rate Blood Pressure 112/60 Blood Pressure [Ri ght Upper Arm] Pulse Oximetry 94 96 97 Oxygen Delivery Nc thod 09/02/23 18:15 09/02/23 18:30 09/02/23 18:33 Temperature Pulse Rate 68 69 Pulse Rate [Pulse Oximeter] Respiratory Rate Blood Pressure 101/63 Blood Pressure [Ri ght Upper Arm] Pulse Oximetry 96 95 Oxygen Delivery Nc thod 09/02/23 18:45 09/02/23 19:09 09/02/23 19:11 Temperature Pulse Rate 72 68 69 Pulse Rate [Pulse Oximeter] Respiratory Rate Blood Pressure 115/61 Blood Pressure [Ri ght Upper Arm] Pulse Oximetry 95 96 92 Oxygen Delivery Nc thod 09/02/23 19:15 09/02/23 19:30 09/02/23 19:32 Temperature Pulse Rate 64 62 60 Pulse Rate [Pulse Oximeter] Respiratory Rate Blood Pressure 110/52 L Blood Pressure [Ri ght Upper Arm] Pulse Oximetry 92 91 93 [facility]: Result Labs Labs: Short CBC 09/02/23 Range/Units 14:55 WBC 17.94 H (4.50-11.00) K/uL Hgb 13.1 (12.0-16.0) gm/dL Hct 40.6 (33.0-51.0) % Plt Count 210 (140-440) K/uL BMP 09/02/23 14:55 Sodium 138 Potassium 3.1 L Chloride 103 Carbon Dioxide 25 BUN 23 Creatinine 1.5 Glucose 108 Calcium 9.2 Urine 09/02/23 Range/Units 15:40 Urine Color Yellow (Yellow) Urine Appearance Clear (Clear) Urine pH 6.0 (5.0-8.5) Ur Specific [place] 1.020 (1.000-1.030) Urine Protein Negative (Negative) Urine Glucose (UA) Negative (Negative) ECG Attestation: I personally reviewed and interpreted this ECG as follows: ECG interpretation date: 09/02/23 Interpretation: NSR, ventricular rate 65, QTC 472 Imaging Chest x-ray: Attestation: I have reviewed the pertinent imaging results. Radiologist's impression: No formal read by Radiology. Mild, haziness upper lobes Assessment and Plan Assessment and plan (1) Leukocytosis: Problem comment: -leukocytosis with left shift WBC 17.94, lactate 2.9 improved to 1.5 following IVF, afebrile, no tachycardia/tachypnea, hypotensive improved with IVF -UA unremarkable, BC x2 pending -empiric treatment for possible community acquired pneumonia, query bacteremia -continue IV Zosyn as initiated in ED -continue gentle IV hydration, received 1.5 L in ED Status: Acute (2) Weakness: Problem comment: -generalized, afebrile, leukocytosis, electrolytes reasonable -orthostatics when able -PT/OT consults -Health Editor for discharge planning/placement needs. Currently lives home alone with CERTIFIED CREDIT COUNSELOR present 6 hours daily Status: Acute (3) Hypotension: Problem comment: -responsive to IVF -per ED provider, family does not want to use pressors. Okay for boluses IVF if necessary -hold home medications Status: Acute (4) Diarrhea: Problem comment: -incontinent of stools which is not normal for her -C diff, stool culture, GI pathogen ordered. Precautions -magnesium and phosphorus levels ordered Status: Acute (5) Hypokalemia: Problem comment: -potassium 3.1 -hold Lasix -supplement with oral replacement and follow Status: Acute (6) Hypothyroidism: Problem comment: -continue levothyroxine -TSH ordered Status: Chronic (7) Alzheimer's dementia with behavioral disturbance: Problem comment: -continue home medication, monitor for acute delirium Status: Chronic (8) Hypertension: Problem comment: -hold valsartan, metoprolol, furosemide in setting of hypotension Status: Chronic (9) Elevated troponin: Problem comment: -0.38, EKG shows NSR -per ED provider, as discussed with family, no further workup or management requested Status: Acute Plan Code: Full VTE PPX: Enoxaparin
[2023-09-02 20:32] LABS: C.Difficile Negative (Negative); CDIFFEPI 027 Presumptive Negative (Negative)
[2023-09-02 21:32] LABS: Thyroid Stimulating Hormone* 0.934 uIU/mL (0.270-4.20)
[2023-09-02] MEDS: ATORVASTATIN 10 MG TABLET 20 MG PO (21:50)
[2023-09-02] MEDS: MEMANTINE HCL 10 MG TABLET PO (21:51)
[2023-09-02] MEDS: ENOXAPARIN 30 MG/0.3ML INJ SUBCUT (21:53)
[2023-09-02] MEDS: SODIUM CHLORIDE 0.9 % (FLUSH) 10 ML SYRINGE 5 ML IVF (21:54)
[2023-09-02] MEDS: 0.9 % SODIUM CHLORIDE 1000 ml 1,000 ML 125 ML IV (21:54)
[2023-09-03] MEDS: PIPERACILLIN/TAZOBACTAM 2.25 GM in 0.9 % SODIUM CHLORIDE Mini-bag 100 ML IVPB ×4 (02:13→19:43)
[2023-09-03 03:00] VITALS: BP 108/70; RESP 18; TEMP 36.6; O2SAT 95
[2023-09-03] MEDS: 0.9 % SODIUM CHLORIDE 1000 ml 1,000 ML 125 ML IV ×3 (05:42→23:49)
[2023-09-03 06:27] LABS: Hematocrit 38.9 % (33.0-51.0); Hemoglobin* 12.3 gm/dL (12.0-16.0); Mean Corpuscular HGB Conc 32 gm/dL (32-36); Mean Corpuscular Hemoglobin 29 pg (26-34); Mean Corpuscular Volume 91 fL (80-100); Platelet Count* 170 K/uL (140-440); Red Blood Count 4.29 m/uL (4.00-5.20)
[2023-09-03] MEDS: LEVOTHYROXINE 50 MCG TABLET PO (06:34)
[2023-09-03 06:35] LABS: Slide Review Reflex No
[2023-09-03 06:51] LABS: Chloride* 110 mmol/L (96-114); Potassium* 3.2 mmol/L (3.6-5.1); Sodium* 140 mmol/L (135-149)
[2023-09-03 06:54] LABS: Anion Gap 5 mEq/L (7-15); Blood Urea Nitrogen* 23 mg/dL (7-30); Carbon Dioxide* 25 mmol/L (20-32); Creatinine* 1.2 mg/dL (0.5-1.5); Est. Creatinine Clearance* 30.28; Estimated Glomerular Filt Rate 44 ml/min
[2023-09-03 06:55] LABS: Calcium* 7.9 mg/dL (8.4-10.6); Glucose* 79 mg/dL (60-115); Magnesium* 1.5 mg/dL (1.5-2.6); Phosphorus* 3.5 mg/dL (2.5-4.5)
[2023-09-03 06:57] LABS: C Reactive Protein* 8.6 mg/dL (0.5-1.0)
[2023-09-03 07:00] VITALS: BP 117/70; PULSE 72; PULSE 73; RESP 20; TEMP 36.5; O2SAT 96
--- NOTE | 2023-09-03 08:20 | P.IMPN_ITS ---
Progress Note: A&P Assessment and plan (1) Bacteremia: Problem details: -BC x2 preliminary report growing Gram-negative rods -continue Zosyn, renally dosed. Creatinine 1.2 -pressures stable overnight, IVF boluses p.r.n., no pressors per family request Status: Acute (2) Pneumonia: Problem details: -CXR, radiology read concerning for left basilar infiltrate. Leukocytosis down trending. -continue Zosyn, renally dosed Status: Acute (3) Leukocytosis: Problem details: -leukocytosis with left shift WBC 17.94 - downtrending, lactate 2.9 improved to 1.5 following IVF, afebrile, no tachycardia/tachypnea, hypotensive improved with IVF -UA unremarkable, BC x2 preliminary gram-negative rods -empiric treatment for possible community acquired pneumonia, query bacteremia - confirmed -continue IV Zosyn as initiated in ED -continue gentle IV hydration, received 1.5 L in ED Status: Acute (4) Weakness: Problem details: -generalized, afebrile, leukocytosis, electrolytes reasonable -orthostatics when able -PT/OT consults -Record Clerk Salesperson for discharge planning/placement needs. Currently lives home alone with CYLINDER PRESS OPERATOR present 6 hours daily Status: Acute (5) Diarrhea: Problem details: -incontinent of stools which is not normal for her -C diff negative, stool culture, GI pathogen pending. Precautions -magnesium and phosphorus levels WNL Status: Acute (6) Hypokalemia: Problem details: -potassium 3.2 -hold Lasix -continue supplement with oral replacement and follow Status: Acute (7) Elevated troponin: Problem details: -0.38, EKG shows NSR -per ED provider, as discussed with family, no further workup or management requested Status: Acute (8) Hypertension: Problem details: -hold valsartan, metoprolol, furosemide in setting of hypotension. Resume when appropriate Status: Chronic (9) Alzheimer's dementia with behavioral disturbance: Problem details: -continue home medication, monitor for acute delirium -high school social studies teacher for discharge planning/placement needs. Not appropriate for living home alone, unsupervised 18 hours a day Status: Chronic (10) Hypothyroidism: Problem details: -continue levothyroxine -TSH 0.934 Status: Chronic (11) Hypotension: Problem details: -responsive to IVF -per ED provider, family does not want to use pressors. Okay for boluses IVF if necessary -hold home medications 09/03 - pressures stable overnight Status: Acute (12) Squamous cell carcinoma of scalp: Problem details: -noted. Multiple previous excisions. Per EMR, last treated by [facility] 05/2023 Status: Acute Plan Continue renally dosed IV antibiotics for bacteremia, acute cystitis, suspected pneumonia. OT/PT/high school social studies teacher for discharge planning, placement needs. Time Spent With Patient Total time spent: Total time spent caring for the patient today was 45 minutes. This includes time spent for the visit reviewing the chart, time spent during the visit, time spent after the visit and documentation and planning in coordination of care. Subjective Date Seen: 09/03/23 Interval history: Patient is seen at bedside, more alert, smiling, reports feeling better this morning. Oriented to self. Denies pain of any sort. Reports sleeping pretty well. Remains afebrile. Pressures stable overnight. Tolerating orals without nausea, vomiting. Exam Narrative: Exam Narrative: PHYSICAL EXAM General: Pleasant, conversant this morning, NAD HEENT: Scalp with squamous cell growths Cardiovascular: RRR. No pitting edema Pulmonary: CTA bilaterally without rhonchi, rales, expiratory wheezes. No dyspnea on room air Abdominal: Soft, nondistended, NTTP, no guarding Neurological: Alert, poor historian, no focal findings Extremities: No gross joint deformity or swelling. AROMI. Neurovascularly intact Skin: Warm, dry. Const: Vital Signs, click to edit/add: Vital Signs - 24 hr 09/02/23 14:21 09/02/23 15:07 09/02/23 15:15 Temperature 98 F Pulse Rate 71 69 Pulse Rate [Pulse Oximeter] 92 Respiratory Rate 16 Blood Pressure Blood Pressure [Le ft Arm] Blood Pressure [Ri ght Upper Arm] 73/52 L Pulse Oximetry 96 93 95 Oxygen Delivery Me thod Room Air 09/02/23 15:17 09/02/23 15:18 09/02/23 15:30 Temperature Pulse Rate 69 68 66 Pulse Rate [Pulse Oximeter] Respiratory Rate Blood Pressure 99/50 L Blood Pressure [Le ft Arm] Blood Pressure [Ri ght Upper Arm] Pulse Oximetry 94 94 94 Oxygen Delivery Me thod 09/02/23 15:32 09/02/23 15:32 09/02/23 15:45 Temperature Pulse Rate 67 67 79 Pulse Rate [Pulse Oximeter] Respiratory Rate Blood Pressure 102/48 L 102/48 L Blood Pressure [Le ft Arm] Blood Pressure [Ri ght Upper Arm] Pulse Oximetry 96 96 99 Oxygen Delivery Me thod 09/02/23 15:47 09/02/23 15:48 09/02/23 16:00 Temperature Pulse Rate 69 69 69 Pulse Rate [Pulse Oximeter] Respiratory Rate Blood Pressure 104/51 L Blood Pressure [Le ft Arm] Blood Pressure [Ri ght Upper Arm] Pulse Oximetry 95 98 96 Oxygen Delivery Me thod 09/02/23 16:02 09/02/23 16:15 09/02/23 16:17 Temperature Pulse Rate 71 71 70 Pulse Rate [Pulse Oximeter] Respiratory Rate Blood Pressure 107/56 L 110/52 L Blood Pressure [Le ft Arm] Blood Pressure [Ri ght Upper Arm] Pulse Oximetry 94 93 95 Oxygen Delivery Me thod 09/02/23 16:18 09/02/23 16:30 09/02/23 16:32 Temperature Pulse Rate 69 69 Pulse Rate [Pulse Oximeter] Respiratory Rate Blood Pressure 121/54 L Blood Pressure [Le ft Arm] Blood Pressure [Ri ght Upper Arm] Pulse Oximetry 94 96 Oxygen Delivery Me thod 09/02/23 16:45 09/02/23 16:47 09/02/23 17:00 Temperature Pulse Rate 69 68 74 Pulse Rate [Pulse Oximeter] Respiratory Rate Blood Pressure 115/55 L Blood Pressure [Le ft Arm] Blood Pressure [Ri ght Upper Arm] Pulse Oximetry 94 95 95 Oxygen Delivery Me thod 09/02/23 17:02 09/02/23 17:32 09/02/23 17:33 Temperature Pulse Rate 75 67 66 Pulse Rate [Pulse Oximeter] Respiratory Rate Blood Pressure 125/57 L 111/61 Blood Pressure [Le ft Arm] Blood Pressure [Ri ght Upper Arm] Pulse Oximetry 98 95 94 Oxygen Delivery Me thod 09/02/23 17:45 09/02/23 18:00 09/02/23 18:02 Temperature Pulse Rate 64 65 66 Pulse Rate [Pulse Oximeter] Respiratory Rate Blood Pressure 112/60 Blood Pressure [Le ft Arm] Blood Pressure [Ri ght Upper Arm] Pulse Oximetry 94 96 97 Oxygen Delivery Me thod 09/02/23 18:15 09/02/23 18:30 09/02/23 18:33 Temperature Pulse Rate 68 69 Pulse Rate [Pulse Oximeter] Respiratory Rate Blood Pressure 101/63 Blood Pressure [Le ft Arm] Blood Pressure [Ri ght Upper Arm] Pulse Oximetry 96 95 Oxygen Delivery Me thod 09/02/23 18:45 09/02/23 19:09 09/02/23 19:11 Temperature Pulse Rate 72 68 69 Pulse Rate [Pulse Oximeter] Respiratory Rate Blood Pressure 115/61 Blood Pressure [Le ft Arm] Blood Pressure [Ri ght Upper Arm] Pulse Oximetry 95 96 92 Oxygen Delivery Me thod 09/02/23 19:15 09/02/23 19:30 09/02/23 19:32 Temperature Pulse Rate 64 62 60 Pulse Rate [Pulse Oximeter] Respiratory Rate Blood Pressure 110/52 L Blood Pressure [Le ft Arm] Blood Pressure [Ri ght Upper Arm] Pulse Oximetry 92 91 93 Oxygen Delivery Me od 09/02/23 20:01 09/02/23 20:01 09/02/23 20:11 Temperature 97.6 F 97.6 F Pulse Rate Pulse Rate [Pulse Oximeter] Respiratory Rate 16 16 16 Blood Pressure Blood Pressure [Le ft Arm] 105/66 Blood Pressure [Ri ght Upper Arm] Pulse Oximetry 92 92 92 Oxygen Delivery Me od Room Air Room Air Room Air 09/02/23 20:11 09/02/23 21:55 09/02/23 23:55 Temperature Pulse Rate 57 L Pulse Rate [Pulse Oximeter] Respiratory Rate 16 18 Blood Pressure Blood Pressure [Le ft Arm] Blood Pressure [Ri ght Upper Arm] Pulse Oximetry 92 [facility] 09/02/23 23:55 09/03/23 03:00 Temperature 98.5 F 97.8 F Pulse Rate Pulse Rate [Pulse Oximeter] Respiratory Rate 18 18 Blood Pressure Blood Pressure [Le ft Arm] 110/67 108/70 Blood Pressure [Ri ght Upper Arm] Pulse Oximetry 96 95 Oxygen Delivery Me od Room Air Room Air Labs Labs: Laboratory Results - last 24 hr 09/02/23 09/02/23 09/02/23 14:37 14:38 14:55 WBC 17.94 H RBC 4.51 Hgb 13.1 Hct 40.6 MCV 90 MCH 29 MCHC 32 RDW Coeff of Efrain 14.9 Plt Count 210 Neut % (Auto) 94.7 H Lymph % (Auto) 1.7 L Canadian % (Auto) 3.1 Eos % (Auto) 0.0 Baso % (Auto) 0.1 Neut # (Auto) 17.00 H Lymph # (Auto) 0.30 L Canadian # (Auto) 0.60 Eos # (Auto) 0.00 Baso # (Auto) 0.00 Abs Immat Gran (auto) 0.10 Imm/Tot Granulo (auto) 0.4 Sodium 138 Potassium 3.1 L Chloride 103 Carbon Dioxide 25 Anion Gap 10 BUN 23 Creatinine 1.5 Estimated Creat Clear 24.23 Estimated GFR 34 Glucose 108 Lactate 2.9 H Calcium 9.2 Phosphorus Magnesium C-Reactive Protein TSH 0.934 Urine Color Urine Appearance Urine pH Ur Specific [place] Urine Protein Urine Glucose (UA) Urine Ketones Urine Blood Urine Nitrite Urine Bilirubin Urine Urobilinogen Ur Leukocyte Esterase Urine RBC Urine WBC Ur Squamous Epith Cells Urine Bacteria Stl C. diff Tox B Gene Stl C. diff 027-NAP1-BI SARS-CoV-2 (PCR) Negative SARS-CoV-2 Influenza Type A (PCR) Negative PCR FLU A Influenza Type B (PCR) Negative PCR FLU B RSV (PCR) Negative PCR RSV Lab Acknowledgement POC Troponin I 0.42 H 09/02/23 09/02/23 09/02/23 15:40 16:34 16:40 WBC RBC Hgb Hct MCV MCH MCHC RDW Coeff of Efrain Plt Count Neut % (Auto) Lymph % (Auto) Canadian % (Auto) Eos % (Auto) Baso % (Auto) Neut # (Auto) Lymph # (Auto) Canadian # (Auto) Eos # (Auto) Baso # (Auto) Abs Immat Gran (auto) Imm/Tot Granulo (auto) Sodium Potassium Chloride Carbon Dioxide Anion Gap BUN Creatinine Estimated Creat Clear Estimated GFR Glucose Lactate 1.5 Calcium Phosphorus Magnesium C-Reactive Protein TSH Urine Color Yellow Urine Appearance Clear Urine pH 6.0 Ur Specific [place] 1.020 Urine Protein Negative Urine Glucose (UA) Negative Urine Ketones Negative Urine Blood Negative Urine Nitrite Negative Urine Bilirubin Negative Urine Urobilinogen 0.2 Ur Leukocyte Esterase Negative Urine RBC 0-2 Urine WBC 2-5 Ur Squamous Epith Cells Few Urine Bacteria None Stl C. diff Tox B Gene Stl C. diff 027-NAP1-BI SARS-CoV-2 (PCR) Influenza Type A (PCR) Influenza Type B (PCR) RSV (PCR) Lab Acknowledgement POC Troponin I 0.38 H 09/02/23 09/02/23 09/02/23 19:00 19:59 20:23 WBC RBC Hgb Hct MCV MCH MCHC RDW Coeff of Efrain Plt Count Neut % (Auto) Lymph % (Auto) Canadian % (Auto) Eos % (Auto) Baso % (Auto) Neut # (Auto) Lymph # (Auto) Canadian # (Auto) Eos # (Auto) Baso # (Auto) Abs Immat Gran (auto) Imm/Tot Granulo (auto) Sodium Potassium Chloride Carbon Dioxide Anion Gap BUN Creatinine Estimated Creat Clear Estimated GFR Glucose Lactate Calcium Phosphorus Magnesium C-Reactive Protein TSH Urine Color Urine Appearance Urine pH Ur Specific [place] Urine Protein Urine Glucose (UA) Urine Ketones Urine Blood Urine Nitrite Urine Bilirubin Urine Urobilinogen Ur Leukocyte Esterase Urine RBC Urine WBC Ur Squamous Epith Cells Urine Bacteria Stl C. diff Tox B Gene Negative Stl C. diff [id number]-NAP1-BI Presumptive Negative SARS-CoV-2 (PCR) Influenza Type A (PCR) Influenza Type B (PCR) RSV (PCR) Lab Acknowledgement Test Added Test Added POC Troponin I 09/03/23 05:45 WBC 12.20 H RBC 4.29 Hgb 12.3 Hct 38.9 MCV 91 MCH 29 MCHC 32 RDW Coeff of Efrain Plt Count 170 Neut % (Auto) Lymph % (Auto) Canadian % (Auto) Eos % (Auto) Baso % (Auto) Neut # (Auto) Lymph # (Auto) Canadian # (Auto) Eos # (Auto) Baso # (Auto) Abs Immat Gran (auto) Imm/Tot Granulo (auto) Sodium 140 Potassium 3.2 L Chloride 110 Carbon Dioxide 25 Anion Gap 5 L BUN 23 Creatinine 1.2 Estimated Creat Clear 30.28 Estimated GFR 44 Glucose 79 Lactate Calcium 7.9 L Phosphorus 3.5 Magnesium 1.5 C-Reactive Protein 8.6 H TSH Urine Color Urine Appearance Urine pH Ur Specific [place] Urine Protein Urine Glucose (UA) Urine Ketones Urine Blood Urine Nitrite Urine Bilirubin Urine Urobilinogen Ur Leukocyte Esterase Urine RBC Urine WBC Ur Squamous Epith Cells Urine Bacteria Stl C. diff Tox B Gene Stl C. diff [id number]-NAP1-BI SARS-CoV-2 (PCR) Influenza Type A (PCR) Influenza Type B (PCR) RSV (PCR) Lab Acknowledgement POC Troponin I
[2023-09-03] MEDS: POTASSIUM CHLORIDE 10 MEQ CAPSULE ER 20 MEQ PO (09:59)
[2023-09-03] MEDS: OMEPRAZOLE 20 MG CAPSULE DR 40 MG PO (10:00)
[2023-09-03] MEDS: ASPIRIN 81 MG TAB.CHEW PO (10:00)
[2023-09-03] MEDS: MEMANTINE HCL 10 MG TABLET PO ×2 (10:00→19:42)
--- NOTE | 2023-09-03 12:16 | PC.SOCIAL ---
Addendum entered by CRUZ Weber 09/03/23 17:24: Discharge planning: dockworker met with pt, her son, Yamileth, and his today. Pt would like to return home and her son and [id number] also feel good about this plan. Pt's son states that pt has a TRAILER MECHANIC Thursday-Thursday 8:30am-2:30pm and family to help at other times. Pt's son and his live in a house on the same property as the pt. Pt also has another son and [id number] that live in another house on the same property as the pt and are only a few hundred feet away. Pt's son Yamileth also runs a farming business on the property and is around to check-in on the pt. The pt does not use the stove or microwave and the family brings her all of her meals. Social work to follow-up a needed. Original Note: Discharge planning: dockworker tried calling pt's primary contact, Virginia Wellington, who stated that the primary contact should be the pt's son, Yamileth, who is also listed as a contact. Virginia did state that the family needed to all meet and discuss their thoughts on the pt returning home or not. Social work to follow-up as needed.
[2023-09-03 14:44] VITALS: PULSE 73
--- NOTE | 2023-09-03 18:23 | PC.NURSE ---
End of shift [id number] - Pt alert to self, disoriented to place, time, and situation. Easily redirected, but asks same questions repeatedly in attempt to orient self. Up to chair and bedside commode with standby assistance. Up with OT for cares. Tolerating RA, regular diet, fluids. Pt reported wanting to stay in bed for as long as possible and needed heavy encouragement to move from bed to chair and participate in care. Continent of bowel, conn catheter noted to be patent and draining. Denies pain, SOB, nausea. Family at bedside, pt appears to be resting comfortably at end of shift.
[2023-09-03 19:00] VITALS: BP 131/77; PULSE 82; RESP 20; TEMP 36.9; O2SAT 96
[2023-09-03] MEDS: ATORVASTATIN 10 MG TABLET 20 MG PO (19:42)
[2023-09-03] MEDS: ENOXAPARIN 30 MG/0.3ML INJ SUBCUT (19:42)
[2023-09-03 23:00] VITALS: RESP 18
[2023-09-03] MEDS: 0.9 % SODIUM CHLORIDE 500 ML 500 ML IV (23:50)
[2023-09-03] MEDS: MELATONIN 3 MG TABLET PO (23:54)
[2023-09-04 02:03] VITALS: PULSE 67
[2023-09-04] MEDS: PIPERACILLIN/TAZOBACTAM 2.25 GM in 0.9 % SODIUM CHLORIDE Mini-bag 100 ML IVPB ×2 (02:27→09:40)
[2023-09-04 06:34] LABS: Hematocrit 35.2 % (33.0-51.0); Hemoglobin* 11.2 gm/dL (12.0-16.0); Mean Corpuscular HGB Conc 32 gm/dL (32-36); Mean Corpuscular Hemoglobin 29 pg (26-34); Mean Corpuscular Volume 91 fL (80-100); Platelet Count* 159 K/uL (140-440); Red Blood Count 3.89 m/uL (4.00-5.20); White Blood Count* 6.94 K/uL (4.50-11.00)
[2023-09-04 06:37] LABS: Slide Review Reflex No
[2023-09-04 06:44] LABS: Chloride* 114 mmol/L (96-114); Sodium* 139 mmol/L (135-149)
[2023-09-04 06:47] LABS: Anion Gap 6 mEq/L (7-15); Blood Urea Nitrogen* 16 mg/dL (7-30); Carbon Dioxide* 19 mmol/L (20-32); Creatinine* 1.2 mg/dL (0.5-1.5); Est. Creatinine Clearance* 30.28; Estimated Glomerular Filt Rate 44 ml/min
[2023-09-04 06:48] LABS: Calcium* 7.3 mg/dL (8.4-10.6); Glucose* 76 mg/dL (60-115)
[2023-09-04 06:57] LABS: Potassium* 2.9 mmol/L (3.6-5.1)
[2023-09-04 07:00] VITALS: PULSE 86; PULSE 87; RESP 18
[2023-09-04] MEDS: LEVOTHYROXINE 50 MCG TABLET PO (07:31)
[2023-09-04] MEDS: POTASSIUM BICARB 25 MEQ EFFERVESCENT TAB 50 MEQ PO (09:40)
[2023-09-04] MEDS: OMEPRAZOLE 20 MG CAPSULE DR 40 MG PO (09:41)
[2023-09-04] MEDS: ASPIRIN 81 MG TAB.CHEW PO (09:41)
[2023-09-04] MEDS: MAGNESIUM OXIDE 400 MG TABLET PO (09:41)
[2023-09-04] MEDS: MEMANTINE HCL 10 MG TABLET PO ×2 (09:41→21:03)
[2023-09-04] MEDS: POTASSIUM CHLORIDE 10 MEQ CAPSULE ER 20 MEQ PO ×2 (09:42→18:59)
[2023-09-04 10:17] VITALS: BP 180/90; PULSE 124; O2SAT 97
--- NOTE | 2023-09-04 11:36 | P.IMPN_ITS ---
Progress Note: A&P Assessment and plan (1) Diarrhea: Problem details: Admission to the hospital due to severe diarrhea and weakness. Diarrhea appears to be getting better. Status: Acute (2) Bacteremia: Problem details: Blood cultures growing pansensitive E coli. From pneumonia or gastroenteritis? Clinically improving Status: Acute (3) Pneumonia: Problem details: Improving. Blood cultures with E coli. Treat with ceftriaxone Status: Acute (4) Tachycardia: Problem details: Check EKG. Resume metoprolol. Status: Acute (5) Hypokalemia: Problem details: Replace and follow Status: Acute (6) Elevated troponin: Problem details: -0.38, EKG shows NSR -per ED provider, as discussed with family, no further workup or management requested Status: Acute (7) Alzheimer's dementia with behavioral disturbance: Problem details: -continue home medication, monitor for acute delirium Review of plan with family, PT, OT suggests that patient has been doing quite well living semi independently with metal fabricating shop helper and family close by. I told patient and family that the dementia is a progressive problem and she may not be able to live independently in the future. I told the family that should begin thinking about alternative living arrangements the may be required as soon as within the next year. Status: Chronic (8) Hypertension: Problem details: Restart metoprolol. Monitor for volume status and blood pressure. Restart furosemide and valsartan as needed Status: Chronic (9) Hypotension: Problem details: Improved. Stop IV fluids. Gradually resume antihypertensives as needed Status: Acute (10) Weakness: Problem details: Improving. Now stronger and with independent mobility Status: Acute (11) Hypothyroidism: Problem details: -continue levothyroxine -TSH 0.934 Status: Chronic (12) Squamous cell carcinoma of scalp: Problem details: Referred to Radiation Oncology through [place]. Canceled last appointment. Family undecided about whether to proceed with further treatment. I indicated that the skin lesion will get progressively worse but uncertain over what time frame. Status: Acute Plan 88-year-old female admitted to the hospital with severe diarrhea and weakness. Subsequently diagnosed with pneumonia, E coli bacteremia. Clinically improving. Continue in hospital for IV antibiotics. Possible discharge to home with family in the next few days. Time Spent With Patient Total time spent: Total time spent today is 65 minutes, 45 minutes in coordination of care discussing with patient and family ongoing evaluation management of gastroenteritis, pneumonia, bacteremia, dementia Subjective Date Seen: 09/04/23 Exam Const: Vital Signs, click to edit/add: Vital Signs - 24 hr 09/03/23 14:44 09/03/23 19:00 09/03/23 23:00 Temperature 98.4 F Pulse Rate 73 Pulse Rate [Pulse Oximeter] 82 Respiratory Rate 20 18 Blood Pressure [Le ft Arm] 131/77 Pulse Oximetry 96 Oxygen Delivery Me thod Room Air 09/04/23 02:03 09/04/23 07:00 09/04/23 07:00 Temperature Pulse Rate 67 86 Pulse Rate [Pulse Oximeter] 87 Respiratory Rate 18 Blood Pressure [Le ft Arm] Pulse Oximetry Oxygen Delivery Me thod 09/04/23 10:17 Temperature Pulse Rate Pulse Rate [Pulse Oximeter] 124 H Respiratory Rate Blood Pressure [Le ft Arm] 180/90 H Pulse Oximetry 97 Oxygen Delivery Me thod Labs Labs: Laboratory Results - last 24 hr 09/04/23 05:54 WBC 6.94 RBC 3.89 L Hgb 11.2 L Hct 35.2 MCV 91 MCH 29 MCHC 32 Plt Count 159 Sodium 139 Potassium 2.9 L* Chloride 114 Carbon Dioxide 19 L Anion Gap 6 L BUN 16 Creatinine 1.2 Estimated Creat Clear 30.28 Estimated GFR 44 Glucose 76 Calcium 7.3 L
[2023-09-04] MEDS: cefTRIAXone 2 GM in 0.9 % SODIUM CHLORIDE Mini-bag 100 ML IVPB (12:12)
[2023-09-04] MEDS: METOPROLOL TARTRATE 25 MG TABLET PO (12:12)
[2023-09-04 15:00] VITALS: PULSE 66; PULSE 69; RESP 18
--- NOTE | 2023-09-04 19:27 | PC.NURSE ---
Pt pleasantly confused and cooperative with cares. Moving well with minimal SBA and denies pain. Potassium replaced via capsules and effervescents. Tachycardia noted this morning, EKG and metoprolol given per MD. Pt has had good HR control the remainder of the day. Rosalie esparza'eulalio this afternoon, pt needs to void. Loose stool x1, pt was continent and able to get to BR in time. Son and daughter in law in to visit this afternoon.
[2023-09-04 19:47] VITALS: BP 151/76; PULSE 57; RESP 18; TEMP 36.7; O2SAT 95
[2023-09-04] MEDS: SODIUM CHLORIDE 0.9 % (FLUSH) 10 ML SYRINGE 5 ML IVF (21:03)
[2023-09-04] MEDS: ENOXAPARIN 30 MG/0.3ML INJ SUBCUT (21:03)
[2023-09-04] MEDS: ATORVASTATIN 10 MG TABLET 20 MG PO (21:03)
[2023-09-04 23:00] VITALS: PULSE 64
[2023-09-05] VITALS: PULSE 59; RESP 18
[2023-09-05] MEDS: LEVOTHYROXINE 50 MCG TABLET PO (06:18)
--- NOTE | 2023-09-05 06:22 | PC.NURSE ---
End of shift [id number]: Pt alert to self with periodic confusion but pleasant and cooperative. VSS. Denies pain or SOB. Pt sets off bed alarm to use the bathroom. SBA w/ walker and gait belt. Pt appeared to rest comfortably throughout shift.
[2023-09-05 06:37] LABS: Hematocrit 42.2 % (33.0-51.0); Hemoglobin* 13.6 gm/dL (12.0-16.0); Mean Corpuscular HGB Conc 32 gm/dL (32-36); Mean Corpuscular Hemoglobin 29 pg (26-34); Mean Corpuscular Volume 89 fL (80-100); Platelet Count* 210 K/uL (140-440); Red Blood Count 4.74 m/uL (4.00-5.20); White Blood Count* 6.35 K/uL (4.50-11.00)
[2023-09-05 06:59] LABS: Slide Review Reflex No
[2023-09-05 07:00] VITALS: PULSE 100; PULSE 124; RESP 24
[2023-09-05 07:00] LABS: Chloride* 110 mmol/L (96-114)
[2023-09-05 07:01] LABS: Potassium* 3.6 mmol/L (3.6-5.1); Sodium* 141 mmol/L (135-149)
[2023-09-05 07:03] LABS: Est. Creatinine Clearance* 36.34; Estimated Glomerular Filt Rate 55 ml/min
[2023-09-05 07:04] LABS: Anion Gap 11 mEq/L (7-15); Blood Urea Nitrogen* 11 mg/dL (7-30); Carbon Dioxide* 20 mmol/L (20-32); Glucose* 87 mg/dL (60-115)
[2023-09-05 07:05] LABS: Calcium* 8.8 mg/dL (8.4-10.6); Magnesium* 1.9 mg/dL (1.5-2.6)
[2023-09-05 07:07] LABS: C Reactive Protein* 4.5 mg/dL (0.5-1.0)
[2023-09-05] MEDS: MAGNESIUM OXIDE 400 MG TABLET PO (08:00)
[2023-09-05] MEDS: ASPIRIN 81 MG TAB.CHEW PO (08:00)
[2023-09-05] MEDS: POTASSIUM CHLORIDE 10 MEQ CAPSULE ER 20 MEQ PO ×2 (08:00→18:58)
[2023-09-05] MEDS: OMEPRAZOLE 20 MG CAPSULE DR 40 MG PO (08:00)
[2023-09-05] MEDS: SODIUM CHLORIDE 0.9 % (FLUSH) 10 ML SYRINGE 5 ML IVF (08:01)
[2023-09-05] MEDS: MEMANTINE HCL 10 MG TABLET PO ×2 (08:04→20:26)
[2023-09-05] MEDS: FUROSEMIDE 20 MG TABLET PO (08:14)
[2023-09-05] MEDS: METOPROLOL TARTRATE 25 MG TABLET 12.5 MG PO ×2 (08:14→20:26)
[2023-09-05 08:21] VITALS: BP 162/105; PULSE 124; RESP 24; TEMP 36.3; O2SAT 96
[2023-09-05] MEDS: VALSARTAN 80 MG TABLET 40 MG PO (08:45)
[2023-09-05] MEDS: cefTRIAXone 2 GM in 0.9 % SODIUM CHLORIDE Mini-bag 100 ML IVPB (13:21)
--- NOTE | 2023-09-05 14:31 | P.IMPN_ITS ---
Progress Note: A&P Assessment and plan (1) Diarrhea: Problem details: Admission to the hospital due to severe diarrhea and weakness. Diarrhea appears to be getting better. Status: Acute (2) Bacteremia: Problem details: Blood cultures growing pansensitive E coli. From pneumonia or gastroenteritis? Clinically improving. Status: Acute (3) Pneumonia: Problem details: Improving. Blood cultures with E coli. Treat with ceftriaxone. Status: Acute (4) Tachycardia: Problem details: Check EKG. Resume metoprolol. Status: Acute (5) Hypokalemia: Problem details: Replace and follow Status: Acute (6) Elevated troponin: Problem details: -0.38, EKG shows NSR without acute ST-T changes. -per ED provider, as discussed with family, no further workup or management requested. Status: Acute (7) Alzheimer's dementia with behavioral disturbance: Problem details: -continue home medication, monitor for acute delirium Review of plan with family, PT, OT suggests that patient has been doing quite well living semi independently with stained glass glazier helper and family close by. I told patient and family that the dementia is a progressive problem and she may not be able to live independently in the future. I told the family that should begin thinking about alternative living arrangements the may be required as soon as within the next year. Status: Chronic (8) Hypertension: Problem details: Restart metoprolol, furosemide and valsartan. Status: Chronic (9) Hypotension: Problem details: Improved. Stop IV fluids. Gradually resume antihypertensives. Status: Acute (10) Weakness: Problem details: Improving. Now stronger and with independent mobility. Encourage mobility to maintain independence Status: Acute (11) Hypothyroidism: Problem details: -continue levothyroxine -TSH 0.934 Status: Chronic (12) Squamous cell carcinoma of scalp: Problem details: Referred to Radiation Oncology through [place]. Canceled last appointment. Family undecided about whether to proceed with further treatment. I indicated that the skin lesion will get progressively worse but uncertain over what time frame. Status: Acute Plan Patient is a continue in the hospital for IV antibiotics and monitoring of sepsis. Possible discharge to home tomorrow with outpatient oral antibiotics depending on clinical course. Time Spent With Patient Total time spent: Total time spent today is 55 minutes, 45 minutes in coordination of care and discussing with patient and son and other providers disposition plan. Subjective Date Seen: 09/05/23 Interval history: 88-year-old female admitted to the hospital with diarrhea and weakness. Subsequently diagnosed with pneumonia and E coli bacteremia. Currently on ceftriaxone. Clinically improving. Yesterday and today she has been noted to be tachycardic with minimal activity. She was up ambulating to the bathroom and became tachycardic with the sinus tachycardia to 130. That happened yesterday and today. She does get mildly dyspneic with this. Spoke with the patient and family about this. She is quite sedentary at home. She also had her metoprolol held when she came in because she was septic and hypotensive. Toprol has been restarted. Plan of care is discussed with patient and her son today. Exam Narrative: Exam Narrative: She is alert, pleasant and appears in no distress. She is oriented to being in the hospital but can not give little detail beyond that. Respirations are clear to auscultation. Cardiovascular: S1, S2, regular rate and rhythm. Abdomen: Bowel sounds active. Abdomen is soft without tenderness. Const: Vital Signs, click to edit/add: Vital Signs - 24 hr 09/04/23 15:00 09/04/23 15:00 09/04/23 19:47 Temperature 98.1 F Pulse Rate 69 Pulse Rate [Pulse Oximeter] 66 57 L Respiratory Rate 18 18 Blood Pressure [Le ft Arm] 151/76 H Pulse Oximetry 95 Oxygen Delivery Me thod 09/04/23 23:00 09/05/23 07:00 09/05/23 07:00 Temperature Pulse Rate 64 100 Pulse Rate [Pulse Oximeter] 124 H Respiratory Rate 24 Blood Pressure [Le ft Arm] Pulse Oximetry Oxygen Delivery Me thod 09/05/23 08:21 Temperature 97.4 F L Pulse Rate Pulse Rate [Pulse Oximeter] 124 H Respiratory Rate 24 Blood Pressure [Le ft Arm] 162/105 H Pulse Oximetry 96 Oxygen Delivery Me thod Room Air Documenting provider has reviewed patient's vital signs: yes Labs Labs: Laboratory Results - last 24 hr 09/05/23 05:38 WBC 6.35 RBC 4.74 Hgb 13.6 Hct 42.2 MCV 89 MCH 29 MCHC 32 Plt Count 210 Sodium 141 Potassium 3.6 Chloride 110 Carbon Dioxide 20 Anion Gap 11 BUN 11 Creatinine 1.0 Estimated Creat Clear 36.34 Estimated GFR 55 Glucose 87 Calcium 8.8 Magnesium 1.9 C-Reactive Protein 4.5 H
[2023-09-05 15:00] VITALS: PULSE 106; PULSE 82; RESP 18
--- NOTE | 2023-09-05 19:02 | PC.NURSE ---
seems more confused today, continues to be pleasant. She has consistently needed reorientation and to place and time and is repeatedly observed conversing with fictitious people. BP's slightly hypertensive and HR tachy at 124 BPM this morning. MD updated and Metoprolol, Valsartan, and Lasix restarted. Denies pain. Observed several times today beginning to pick at keratinous scabs on arms/legs. Pt able to be redirected and Mepilex applied to open area caused by patient picking on left hurst. Area cleansed with saline. Patient discontinued her IV and is pulling telemetry wires off x3. She has been cooperative with reapplication. Family in to visit at bedside today, potential plans to discharge home tomorrow.
[2023-09-05] MEDS: ATORVASTATIN 10 MG TABLET 20 MG PO (20:25)
[2023-09-05] MEDS: ENOXAPARIN 30 MG/0.3ML INJ SUBCUT (20:25)
--- NOTE | 2023-09-06 02:18 | PC.NURSE ---
Nursing note, care provided [id number]: Pt alert to self, pleasant and cooperative with cares. Vitals stable, HR slightly james at 59bpm, afebrile. Rolled in bed ind. Bed alarm on for promotion of patient safety, call light within pt reach. Report given to receiving RN.
[2023-09-06] MEDS: LEVOTHYROXINE 50 MCG TABLET PO (06:40)
[2023-09-06 07:00] VITALS: PULSE 62; RESP 18
[2023-09-06 07:01] LABS: Campylobacter PCR Not Detected; Enteroaggregative E coli PCR Not Detected; Plesiomonas shig PCR Not Detected; Salmonella PCR Not Detected; Vibrio PCR Not Detected; Vibrio cholerae PCR Not Detected; Yersinia enterocolitica PCR Not Detected
[2023-09-06 07:02] LABS: Adenovirus PCR Not Detected; Astrovirus PCR Not Detected; Cryptosporidium PCR Not Detected; Cyclospora cayetanensis PCR Not Detected; Entamoeba histolytica PCR Not Detected; Enteropathogenic E coli PCR Not Detected; Enterotoxigenic E coli PCR Not Detected; Giardia lamblia PCR Not Detected; Norovirus Gi/GII PCR Not Detected; Rotavirus A PCR Not Detected; Sapovirus PCR Not Detected; Shiga toxin E coli PCR Not Detected; Shigella/Enteroinvasive E coli Not Detected
[2023-09-06 07:16] LABS: Hematocrit 38.2 % (33.0-51.0); Hemoglobin* 12.3 gm/dL (12.0-16.0); Mean Corpuscular HGB Conc 32 gm/dL (32-36); Mean Corpuscular Hemoglobin 29 pg (26-34); Mean Corpuscular Volume 89 fL (80-100); Platelet Count* 149 K/uL (140-440); White Blood Count* 6.59 K/uL (4.50-11.00)
--- NOTE | 2023-09-06 07:47 | PC.NURSE ---
Patient pleasant and cooperative. Slept well. Transfers with walker and stand by assist. No signs of discomfort.?
--- NOTE | 2023-09-06 07:49 | PC.NURSE ---
Patient pleasant, alert and oriented. Transferred with one assist to bedside commode. PRN IVP Dilaudid given for back and abdomenal pain. Reports pain is mostly on left side at ostomy site. [place] to abdominal incision open to air and have no drainage or signs of infection. Steri-strips to lap sites clean, dry and intact. Ostomy drainage was red bloody at 2200. By morning drainage was clear yellowish-light brown liquid with few noted light brown?colored tissue pieces. MARILEE drain was draining light-med red fluid with a few stringy clots. MARILEE drain not patent by early intervention specialist and dressing was saturated with light serosanguinous fluid. Dr Cespedes in to change ostomy this AM. removed MARILEE drain as was no longer patent.?New orders given for sips and chips clear liquid diet.?
[2023-09-06 08:00] VITALS: BP 150/84; PULSE 62; RESP 18; TEMP 36.4; O2SAT 96
[2023-09-06 08:01] LABS: Slide Review Reflex Yes
[2023-09-06 08:02] LABS: Slide Review Acceptable Review (Acceptable)
[2023-09-06 08:10] LABS: Est. Creatinine Clearance* 36.34; Estimated Glomerular Filt Rate 55 ml/min
[2023-09-06 08:11] LABS: Blood Urea Nitrogen* 12 mg/dL (7-30); Carbon Dioxide* 22 mmol/L (20-32)
[2023-09-06 08:12] LABS: Calcium* 8.7 mg/dL (8.4-10.6); Glucose* 81 mg/dL (60-115)
[2023-09-06 08:14] LABS: C Reactive Protein* 2.4 mg/dL (0.5-1.0)
[2023-09-06 08:42] LABS: Chloride* 111 mmol/L (96-114); Erythrocyte SedimentationRate* 17 mm/hr (2-20)
[2023-09-06 08:43] LABS: Anion Gap 5 mEq/L (7-15); Potassium* 3.8 mmol/L (3.6-5.1); Sodium* 138 mmol/L (135-149)
[2023-09-06] MEDS: MAGNESIUM OXIDE 400 MG TABLET PO (08:49)
[2023-09-06] MEDS: FUROSEMIDE 20 MG TABLET PO (08:50)
[2023-09-06] MEDS: POTASSIUM CHLORIDE 10 MEQ CAPSULE ER 20 MEQ PO ×2 (08:50→17:43)
[2023-09-06] MEDS: MEMANTINE HCL 10 MG TABLET PO ×2 (08:50→20:39)
[2023-09-06] MEDS: OMEPRAZOLE 20 MG CAPSULE DR 40 MG PO (08:50)
[2023-09-06] MEDS: METOPROLOL TARTRATE 25 MG TABLET PO (08:50)
[2023-09-06] MEDS: ASPIRIN 81 MG TAB.CHEW PO (08:50)
[2023-09-06] MEDS: VALSARTAN 80 MG TABLET PO (10:54)
[2023-09-06] MEDS: cefTRIAXone 2 GM in 0.9 % SODIUM CHLORIDE Mini-bag 100 ML IVPB (11:28)
[2023-09-06 15:00] VITALS: PULSE 55; RESP 18
--- NOTE | 2023-09-06 15:34 | PM.IMPN1 ---
Progress Note: A&P Assessment and plan (1) Diarrhea: Problem details: Admission to the hospital due to severe diarrhea and weakness. Diarrhea appears to be resolved Status: Acute (2) Bacteremia: Problem details: Blood cultures growing pansensitive E coli. From pneumonia or gastroenteritis? Clinically improving. Status: Acute (3) Pneumonia: Problem details: Improving. Blood cultures with E coli. Treat with ceftriaxone. Status: Acute (4) Tachycardia: Problem details: Check EKG. Resume metoprolol. Status: Acute (5) Hypokalemia: Problem details: Replace and follow Status: Acute (6) Elevated troponin: Problem details: -0.38, EKG shows NSR without acute ST-T changes. -per ED provider, as discussed with family, no further workup or management requested. 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 I told patient and family that the dementia is a progressive problem and she may not be able to live independently in the future. I told the family that should begin thinking about alternative living arrangements the may be required as soon as within the next year. Status: Chronic (8) Hypertension: Problem details: Restart metoprolol, furosemide and valsartan. Status: Chronic (9) Hypotension: Problem details: Improved. Stop IV fluids. Gradually resume antihypertensives. Status: Acute (10) Weakness: Problem details: Improving. Now stronger and with independent mobility. Encourage mobility to maintain independence Status: Acute (11) Hypothyroidism: Problem details: -continue levothyroxine -TSH 0.934 Status: Chronic (12) Squamous cell carcinoma of scalp: Problem details: Referred to Radiation Oncology through [place]. Canceled last appointment. Family undecided about whether to proceed with further treatment. I indicated that the skin lesion will get progressively worse but uncertain over what time frame. Status: Acute Plan Continue in hospital for 1 more day of treatment with IV antibiotics and monitoring of signs and symptoms. Anticipate discharge to home tomorrow. Time Spent With Patient Total time spent: Total time spent today is 55 minutes, 45 minutes in coordination of care discussing with patient, family and other providers ongoing evaluation management of current illness, bacteremia, disposition. Subjective Date Seen: 09/06/23 Interval history: 88-year-old female admitted to the hospital with diarrhea and weakness. Subsequently diagnosed with pneumonia and E coli bacteremia. Currently on ceftriaxone. Clinically improving. Yesterday and today she has been noted to be tachycardic with minimal activity. She was up ambulating to the bathroom and became tachycardic with the sinus tachycardia to 130. That happened yesterday and today. She does get mildly dyspneic with this. Spoke with the patient and family about this. She is quite sedentary at home. She also had her metoprolol held when she came in because she was septic and hypotensive. Toprol has been restarted. Plan of care is discussed with patient and her son today. Patient today reports that she is not feeling good. She feels a little dizzy in the head. She has diminished appetite. She has more fatigue. She does not have fever, chest pain, shortness of breath, abdominal pain, nausea or vomiting or diarrhea. Exam Narrative: Exam Narrative: She is alert and appears in no distress. She seems more oriented to her circumstances today. Respirations are clear to auscultation. Cardiovascular: S1, S2, regular rate and rhythm. Abdomen is soft without tenderness or mass. Bowel sounds are present. She moves all 4 extremities well. No rash. Const: Vital Signs, click to edit/add: Vital Signs - 24 hr 09/06/23 07:00 09/06/23 08:00 Temperature 97.5 F L Pulse Rate [Pulse Oximeter] 62 62 Respiratory Rate 18 18 Blood Pressure [Le ft Arm] 150/84 H Pulse Oximetry 96 Oxygen Delivery Me thod Room Air Documenting provider has reviewed patient's vital signs: yes Labs Labs: Laboratory Results - last 24 hr 09/02/23 09/06/23 19:00 05:35 WBC 6.59 RBC 4.30 Hgb 12.3 Hct 38.2 MCV 89 MCH 29 MCHC 32 Plt Count 149 Diff Slide Review Acceptable Review ESR 17 Sodium 138 Potassium 3.8 Chloride 111 Carbon Dioxide 22 Anion Gap 5 L BUN 12 Creatinine 1.0 Estimated Creat Clear 36.34 Estimated GFR 55 Glucose 81 Calcium 8.7 C-Reactive Protein 2.4 H Stl C. cayetanensis PCR Not Detected Stool Rotavirus A PCR Not Detected Stool Adenovirus (PCR) Not Detected Stool Astrovirus (PCR) Not Detected Stool Campylobacter PCR Not Detected Stool Cryptosporidium PCR Not Detected Stl E.coli Shiga Tox PCR Not Detected Stool E coli O157 PCR N/A Stl Enterotoxigenic E PCR Not Detected Stool EPEC (PCR) Not Detected Stool EAEC (PCR) Not Detected Stl E. histolytica PCR Not Detected Stool Giardia Lamblia PCR Not Detected Stl P. shigelloides PCR Not Detected Stool Salmonella PCR Not Detected Stool Sapovirus (PCR) Not Detected Stl Shigella/EIEC PCR Not Detected St Y.enterocolitica PCR Not Detected Stool Vibrio (PCR) Not Detected Stl Vibrio cholerae PCR Not Detected Stl Norovirus GI/GII PCR Not Detected
--- NOTE | 2023-09-06 18:17 | PC.NURSE ---
Pt quite somnolent today. She was cooperative moving to her chair for meals, but either quickly fell asleep upon finishing eating or requested to return to bed. Family in to visit this afternoon and updated on POC. BP's slightly hypertensive and HR 56-68 BPM throughout the day. Tele= sinus james or sinus arrhythmia. LS clear/diminished. Pt continent of 1 moderate loose stool and mostly continent of bladder. Urge incontinence appeared to be an issue. IV Rocephin infused this afternoon.
[2023-09-06] MEDS: SODIUM CHLORIDE 0.9 % (FLUSH) 10 ML SYRINGE 5 ML IVF (20:38)
[2023-09-06] MEDS: ENOXAPARIN 30 MG/0.3ML INJ SUBCUT (20:38)
[2023-09-06] MEDS: ATORVASTATIN 10 MG TABLET 20 MG PO (20:38)
[2023-09-06] MEDS: METOPROLOL TARTRATE 25 MG TABLET 12.5 MG PO (20:39)
[2023-09-06 20:41] VITALS: BP 143/74; PULSE 66; RESP 20; TEMP 36.6; O2SAT 97
[2023-09-06 22:34] VITALS: PULSE 57
--- NOTE | 2023-09-07 05:15 | PC.NURSE ---
[id number]: Patient pleasant and cooperative . Sleepy. A1/walker. Alert to self and . HR upper 50-lower 60's. Encouraged PO intake with little success. Denies pain. Afebrile.
[2023-09-07] MEDS: LEVOTHYROXINE 50 MCG TABLET PO (05:58)
[2023-09-07 06:20] LABS: Hematocrit 39.1 % (33.0-51.0); Hemoglobin* 12.6 gm/dL (12.0-16.0); Mean Corpuscular HGB Conc 32 gm/dL (32-36); Mean Corpuscular Hemoglobin 29 pg (26-34); Mean Corpuscular Volume 89 fL (80-100); Platelet Count* 227 K/uL (140-440); Red Blood Count 4.39 m/uL (4.00-5.20); White Blood Count* 7.85 K/uL (4.50-11.00)
[2023-09-07 06:22] LABS: Slide Review Reflex No
[2023-09-07 06:24] LABS: Chloride* 109 mmol/L (96-114); Sodium* 139 mmol/L (135-149)
[2023-09-07 06:25] LABS: Potassium* 4.2 mmol/L (3.6-5.1)
[2023-09-07 06:27] LABS: Est. Creatinine Clearance* 36.34; Estimated Glomerular Filt Rate 55 ml/min
[2023-09-07 06:28] LABS: Anion Gap 5 mEq/L (7-15); Blood Urea Nitrogen* 12 mg/dL (7-30); Calcium* 9.1 mg/dL (8.4-10.6); Carbon Dioxide* 25 mmol/L (20-32); Glucose* 96 mg/dL (60-115)
[2023-09-07 06:31] LABS: C Reactive Protein* 1.4 mg/dL (0.5-1.0)
[2023-09-07] MEDS: ASPIRIN 81 MG TAB.CHEW PO (07:56)
[2023-09-07] MEDS: FUROSEMIDE 20 MG TABLET PO (07:56)
[2023-09-07] MEDS: OMEPRAZOLE 20 MG CAPSULE DR 40 MG PO (07:56)
[2023-09-07] MEDS: METOPROLOL TARTRATE 25 MG TABLET 12.5 MG PO (07:56)
[2023-09-07] MEDS: VALSARTAN 80 MG TABLET PO (07:57)
[2023-09-07] MEDS: POTASSIUM CHLORIDE 10 MEQ CAPSULE ER 20 MEQ PO (07:57)
[2023-09-07] MEDS: MEMANTINE HCL 10 MG TABLET PO (07:57)
[2023-09-07] MEDS: MAGNESIUM OXIDE 400 MG TABLET PO (07:57)
[2023-09-07] MEDS: ONDANSETRON 2 MG/ML inj 4 MG IVP (07:58)
[2023-09-07] MEDS: SODIUM CHLORIDE 0.9 % (FLUSH) 10 ML SYRINGE 5 ML IVF (07:58)
[2023-09-07 08:30] VITALS: BP 150/75; PULSE 58; RESP 16; TEMP 36.3; O2SAT 97
--- NOTE | 2023-09-07 11:02 | P.DS_ITS ---
DS: Providers Provider Date Seen: 09/07/23 Date of admission: 09/03/23 08:52 Primary care physician: Not a Local Provider Admitting Clinician: Jaren Cespedes MD Attending Physician on discharge: Wild Combs MD Date of Discharge: 09/07/23 DS: Diagnosis Discharge Diagnosis (1) Bacteremia: Status: Acute Problem details: Blood cultures growing pansensitive E coli. From pneumonia or gastroenteritis? Clinically improving. Treated with Zosyn then ceftriaxone for total of 6 days IV. Oral Cipro for 3 more days. (2) Pneumonia: Status: Acute Problem details: Improving. Blood cultures with E coli. Treated with Zosyn and then ceftriaxone. Signs and symptoms of pneumonia resolved (3) Diarrhea: Status: Acute Problem details: Admission to the hospital due to severe diarrhea and weakness. Diarrhea appears to be resolved. (4) Hypokalemia: Status: Acute Problem details: Replace and follow. Need outpatient follow-up. (5) Elevated troponin: Status: Acute Problem details: -0.38, EKG shows NSR without acute ST-T changes. -per ED provider, as discussed with family, no further workup or management requested. (6) Hypertension: Status: Chronic Problem details: Restart metoprolol, furosemide and valsartan. 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 I told patient and family that the dementia is a progressive problem and she may not be able to live independently in the future. I told the family that should begin thinking about alternative living arrangements that may be required as soon as within the next year. (8) Weakness: Status: Acute Problem details: Improving. Now stronger and with independent mobility. Encourage mobility to maintain independence (9) Squamous cell carcinoma of scalp: Status: Acute Problem details: Referred to Radiation Oncology through [place]. Canceled last appointment. Family undecided about whether to proceed with further treatment. I indicated that the skin lesion will get progressively worse but uncertain over what time frame. DS: Summary Hospital Course Hospital Course: 88-year-old female admitted to the hospital with diarrhea and weakness. Subsequently diagnosed with pneumonia and E coli bacteremia. Currently on ceftriaxone. Clinically improving. Yesterday and today she has been noted to be tachycardic with minimal activity. She was up ambulating to the bathroom and became tachycardic with the sinus tachycardia to 130. That happened yesterday and today. She does get mildly dyspneic with this. Spoke with the patient and family about this. She is quite sedentary at home. She also had her metoprolol held when she came in because she was septic and hypotensive. Toprol has been restarted. Plan of care is discussed with patient and her son. They are and agreement that she can manage at home for now. Patient is clinically improving in all regards. Therapy feels she is able to go home with family and hired home care support. She will receive 3 more days of oral Cipro for her bacteremia at home. Other home medications will be unchanged. Status at Discharge Functional status at discharge: uses cane/walker Overall status at discharge: patient is progressing back to baseline Time Spent with Patient Time attestation: Total time spent providing and/or coordinating discharge services: 40 mins Time spent: Greater than 30 minutes Exam Narrative: Exam Narrative: She is alert and appears in no distress. Respirations are clear to auscultation. Cardiovascular: S1, S2, regular rate and rhythm. Abdomen is soft without tenderness or mass. Extremities without edema. Const: Vital Signs, click to edit/add: Vital Signs - 24 hr 09/06/23 15:00 09/06/23 15:00 09/06/23 20:41 Temperature 97.8 F Pulse Rate 55 L Pulse Rate [Pulse Oximeter] 66 Respiratory Rate 18 20 Blood Pressure [Le ft Arm] 143/74 H Pulse Oximetry 97 Oxygen Delivery Me thod Room Air 09/06/23 22:34 09/07/23 08:30 Temperature 97.4 F L Pulse Rate 57 L Pulse Rate [Pulse Oximeter] 58 L Respiratory Rate 16 Blood Pressure [Le ft Arm] 150/75 H Pulse Oximetry 97 Oxygen Delivery Me thod Room Air Documenting provider has reviewed patient's vital signs: yes DS: Data Data Completed and Pending Labs on day of discharge: Labs from last 24 hours 09/07/23 06:01 WBC 7.85 RBC 4.39 Hgb 12.6 Hct 39.1 MCV 89 MCH 29 MCHC 32 Plt Count 227 Sodium 139 Potassium 4.2 Chloride 109 Carbon Dioxide 25 Anion Gap 5 L BUN 12 Creatinine 1.0 Estimated Creat Clear 36.34 Estimated GFR 55 Glucose 96 Calcium 9.1 C-Reactive Protein 1.4 H Preliminary micro results at discharge 09/02/23 19:00 Stool Culture - Preliminary Stool Discharge Plan Discharge Disposition: Home w/ Parent or Adult Date of Admission: 09/03/23 08:52 Attending Provider on Discharge: Gamaliel Combs Primary Care Provider: Provider,Not a Local Condition: Unchanged Anticipated Discharge Date/Time: 09/07/23 11:30 Discharge Medications: New potassium chloride 10 mEq capsule, extended release 10 meq PO DAILY Qty: 30 0RF ciprofloxacin HCl [Cipro] 500 mg tablet 500 mg PO BID Qty: 6 0RF Continued atorvastatin 20 mg tablet 20 mg PO HS metoprolol tartrate 25 mg tablet 12.5 mg PO BID valsartan 80 mg tablet 80 mg PO DAILY pantoprazole 40 mg tablet,delayed release (DR/EC) 40 mg PO DAILY cyanocobalamin (vitamin B-12) 1,000 mcg tablet 1,000 mcg PO Q48H Rx Instructions: EVERY OTHER DAY furosemide 20 mg tablet 20 mg PO QAM aspirin [Vilma Chewable Aspirin] 81 mg tablet,chewable 81 mg PO DAILY levothyroxine 50 mcg tablet 50 mcg PO QAM memantine 10 mg tablet 10 mg PO BID cholecalciferol (vitamin D3) 1,250 mcg (50,000 unit) capsule 50,000 unit PO Q14D Rx Instructions: EVERY OTHER WEEK Discharge Orders: Discharge Order (Routine); Ordered 09/07/23 Ordered By: Gamaliel Combs Patient Education: Ciprofloxacin (By mouth), Potassium Chloride (By mouth), Pneumonia (DC), Bacteremia (DC) Activity Level: Activity as Tolerated Discharge Diet: Regular Follow Up Appointments: Provider,Not a Local [Primary Care Provider] - DIANNE GRACE DO [Referring] - 09/14/23 9:45 am ([facility] for follow-up, and to check CBC and basic metabolic panel.) Forms: Screenie Info Instructions
--- NOTE | 2023-09-07 12:45 | PC.NURSE ---
Discharge - Pt alert, oriented to self. Pt reported today is going to be a bad day and reported to RN that she was feeling like she wanted to stay in bed all day. Pt was encouraged to get into chair for breakfast and her mood appeared to improve. Pt was up with OT and was told by MD that the plan was for her to d/c today. Pt reported not feeling ready to go home but family and social work associate had adequate plan in place for discharge. Pt readied for d/c, family arrived for transport home. Pt mood improved with family interaction. IV catheter removed with tip intact, discharge education given to family members with verbalized understanding. Pt d/c to home with family via wheelchair at approximately 11:10.
== END 2023-09-07 11:10 | disposition home or self-care (01) | DRG 871 ==
LOC: ED 19:22 → MEDSURG 19:41
PROVIDERS: Family Medicine; Admitting Provider Orthopaedic Surgery; Emergency Provider Emergency Medicine Emergency Medical Services; Visit Provider Physician Assistant
DX: A41.51 Sepsis due to Escherichia coli [E. coli] (principal); J18.9 Pneumonia, unspecified organism; F02.818 Dementia in other diseases classified elsewhere, unspecified severity, with other behavioral disturbance; R65.20 Severe sepsis without septic shock; R19.7 Diarrhea, unspecified; G30.9 Alzheimer's disease, unspecified; R79.89 Other specified abnormal findings of blood chemistry; E87.6 Hypokalemia; D72.829 Elevated white blood cell count, unspecified; R42 Dizziness and giddiness; I95.9 Hypotension, unspecified; C44.42 Squamous cell carcinoma of skin of scalp and neck; I10 Essential (primary) hypertension; K21.9 Gastro-esophageal reflux disease without esophagitis; R32 Unspecified urinary incontinence; R15.9 Full incontinence of feces; F41.9 Anxiety disorder, unspecified; E03.9 Hypothyroidism, unspecified; E78.5 Hyperlipidemia, unspecified
CPT/HCPCS: 51702; 36415; 51798; 71045; 80048; 81001; 83605; 83735; 84100; 84443; 84484; 85025; 85027; 85651; 86140; 87040; 87045; 87046; 87186; 87427; 87493; 87505; 87631; 93005; 97110; 97116; 97161; 97165; 97530; 97535; 99284; 99285; G0378; A9270; J0696; J1650; J2405; J2543; J3475; J7030